=== PATIENT | male | born 1965 | race Caucasian/White ===

== ENCOUNTER 2021-05-05 08:47 | Outpatient (CLI) | payer BC, SELFPAY ==
--- NOTE | ~2021-05-05 | CT_ITS ---
EXAMINATION: CT sinus wo con DATE: 05/05/2021 09:17 INDICATION: Sinusitis. Congestion. TECHNIQUE: Computed tomography (CT) of the paranasal sinuses was performed without contrast. Iterativ e reconstruction technique was employed. Exam dose: 284.29 mGy-cm total exam DLP. COMPARISON: None FINDINGS: There is rightward deviation of the nasal septum. The left middle nasal turbinate is engulfed by soft tissue thickening, with opacification of the left middle meatus. The left osteomeatal unit is completely opacified. The left maxillary sinus is completely opacified. There is nearly complete opacification of the left ethmoid air cells. There is moderate soft tissue thickening of the left frontal sinus. There is complete opacification of the right frontal sinus and partial opacification of the right eth moid air cells. Approximately 10 x 14 mm polypoid soft tissue density along the medial roof of the right maxillary si nus near the maxillar ostium. Minimal mucoperiosteal thickening of the inferior aspect of the right maxillary sinus. Mild mucoperiosteal thickening of both sphenoid sinuses. Mastoid air cells are normally developed and aerated. Middle and inner ear apparatus appear normal bi laterally. IMPRESSION: Extensive paranasal sinus disease, with severe soft tissue thickening of the left nasoph arynx including opacification mm, middle nasal turbinate engulfed by soft tissue thickening, complete opacification of left ostiomeatal unit, left maxillary sinus and nearly complete opacification of le ft ethmoid air cells Complete opacification of right frontal sinus, partial opacification of ethmoid air cells September 05 or polypoid opacity near right maxillary ostium, minimal soft tissue thickening in the lo wer right maxillary sinus Mild mucoperiosteal thickening of the sphenoid sinus Reviewed, dictated and finalized at [facility]. Reviewed, dictated and finalized at [facility]. IMPRESSION: Extensive paranasal sinus disease, with severe soft tissue thicken ing of the left nasopharynx including opacification mm, middle nasal turbinate engulfed by soft tissue thickening, complete opacification of left ostiomeatal unit, left maxillary sinus and nearly complete opacification of left ethmoid ai r cells Complete opacification of right frontal sinus, partial opacification of ethmoid air cells September 05 or polypoid opacity near right maxillary ostium, minimal soft tissu e thickening in the lower right maxillary sinus Mild mucoperiosteal thickening of the sphenoid sinus
== END 2021-05-05 08:48 | disposition home or self-care (01) ==
LOC: ANHIMG 08:50
PROVIDERS: PCP Internal Medicine; Visit Provider Internal Medicine
DX: J34.89 Other specified disorders of nose and nasal sinuses (principal); R93.0 Abnormal findings on diagnostic imaging of skull and head, not elsewhere classified
CPT/HCPCS: 70486

== ENCOUNTER 2021-06-22 08:14 | Outpatient (CLI) | payer BC, SELFPAY ==
--- NOTE | 2021-06-22 08:15 | ECG_ITS ---
Measurements Intervals [place] Rate: 86 P: 41 IN: 170 QRS: 25 QRSD: 103 T: 43 QT: 346 QTc: 414 Interpretive Statements SINUS RHYTHM BORDERLINE R WAVE PROGRESSION, ANTERIOR LEADS MINIMAL Q WAVES- INFERIOR LEADS BORDERLINE ECG Electronically Signed On 06-22-2021 9:54:00 CDT by Ken Velasquez D.O.
== END 2021-06-22 08:15 | disposition home or self-care (01) ==
PROVIDERS: PCP Internal Medicine; Visit Provider Otolaryngology
DX: Z01.810 Encounter for preprocedural cardiovascular examination (principal); E78.5 Hyperlipidemia, unspecified
CPT/HCPCS: 93005

== ENCOUNTER 2021-06-23 01:39 | Day surgery (SDC) | payer BC, SELFPAY ==
[2021-06-20 14:22] VITALS: BMI 29.0
--- NOTE | 2021-06-22 09:41 | PM.IMHP ---
H&P: HPI History of Present Illness Date/Time: 06/22/21 09:41 Chief Complaint: nasal obstruction nasal congestion septal deviation inferior turbinate hypertrophy chronic sinusitis nasal polyposis Narrative: patient presents for planned surgical procedures. No change in symptoms no change in history Review of Systems Constitutional: Constitutional: Denies fatigue, Denies fever(s) and Denies lethargy Eyes: Eyes: Denies blurry vision and Denies change in vision ENT: Reports as per HPI Cardiovascular: Cardiovascular: Denies chest pain Respiratory: Respiratory: Denies cough Endocrine: Endocrine: Denies fatigue Hematologic/Lymphatic: Hematologic/Lymphatic: Denies easy bleeding, Denies easy bruising and Denies lymphadenopathy Allergic/Immunologic: Allergic/Immunologic: Denies seasonal rhinorrhea [facility] Past Medical History Medical History (Updated 05/17/21 @ 15:04 by Yamil Zuniga MD) 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 Lumbar back pain with radiculopathy affecting left lower extremity Family History Family History Sibling Family history of malignant neoplasm Father Family history of heart disease in male family member before age 55 Carcinoma of colon Diabetes mellitus Depression Mother Lung cancer Social History Social History Smoking packs per day: 1.5 Smoking cigarettes per day: 30.0 Years smoked: 15 Smoking pack-years: 22.50 Smoking status: Former smoker Tobacco type: cigarettes Smoking end date: 11/21/17 Alcohol intake: current Drinks per week: 6 Substance use: never Substance use type: does not use Spiritual care concerns: No Meds Home Medications and Allergies Home Medications Medication Instructions Recorded Confirmed Type triamcinolone acetonide 0.025 % 1 applic TOPICAL DAILY 10/26/19 06/20/21 History topical cream bupropion HCl 75 mg tablet 75 mg PO DAILY #90 tablet 12/06/20 06/20/21 Rx prednisone 10 mg tablet 10 mg PO DAILY #10 tablet 06/12/21 06/20/21 Rx ezetimibe 10 mg PO DAILY 06/20/21 06/20/21 History paroxetine HCl 20 mg PO DAILY 06/20/21 06/20/21 History Allergies Allergy/AdvReac Type Severity Reaction Status Date / Time Prrsrih-Vae-Skc Reductase Allergy Intermediate Diarrhea Verified 06/20/21 14:18 Inhibitor Exam Const: General: cooperative, healthy appearing, comfortable, well developed and alert HENMT: Head: normal to inspection, normocephalic and atraumatic Ears: hearing grossly normal bilaterally, external ears normal, TM's normal bilaterally and EAC's normal General nose exam: Normal external nose present, Normal nares present and Other nasal findings present ( polyps septal deviation inferior turbinate hypertrophy) Face and sinus: normal facial exam Mouth: Yes Normal oral and palatal mucosa present, Yes lip normal, Yes tongue normal, Yes oropharynx normal and Yes moist mucous membranes Teeth and gingiva: dentition normal and gingiva normal Throat: posterior oropharynx normal, tonsils normal and uvula midline Eyes: General: appearance normal, both eyes and all related structures Periorbital: periorbital findings normal Eyelids: eyelids normal Conjunctivae: conjunctivae normal Sclera: sclerae normal Neck: Neck: normal visual inspection, full ROM and no lymphadenopathy Thyroid: thyroid normal Lymphatic: no lymphadenopathy noted Resp: Effort & Inspection: normal respiratory effort and able to speak in complete sentences Cardio: Jugular venous distension: no JVD Neuro: Cranial nerves: Yes CN's II-XII intact bilaterally Assessment and Plan Assessment and plan (1) Chronic sinusitis: Code(s): J32.9 - Chronic sinusitis, unspecified Status: Acute Assessment and Plan: plan is for the operating room image guided bilateral endoscopic maxillary antrostomies total ethmoidectomies sphenoidotomies fronta
[2021-06-23] VITALS (7 sets, daily range): BP systolic 118–135; BP diastolic 70–88; PULSE 65–79; RESP 9–20; TEMP 36.1–36.3; O2SAT 97–100
--- NOTE | 2021-06-23 07:08 | WPDHPUPDATE1 ---
History and Physical Update Update Date/Time: 06/23/21 07:08 History and Physical has been reviewed, including an updated exam of the patient. There are NO changes in the patient's condition. Risks, benefits, and alternatives have been discussed and questions answered. Patient agrees to proceed with procedure.
[2021-06-23] MEDS: LACTATED RINGERS 1,000 ML 30 ML IV CONT (09:23)
[2021-06-23] MEDS: ACETAMINOPHEN 500 MG TABLET 1000 MG PO (09:23)
--- NOTE | 2021-06-23 09:25 | P.PNAN_ITS ---
Anes - Initial Pre Proc Eval Procedure: Operation Date: 06/23/21 10:45 Proposed Procedures p Septoplasty, - Yamil Zuniga MD s Image Guided, Bilateral Inferior Turbinectomy, Bilateral Total Ethmoidectomy, Bilateral Frontal Sinusotomy, Bilateral Sphenoidotomy, Bilateral Maxillary Antrostomy - Yamil Zuniga MD Date/Time: 06/23/21 09:25 Surgeon: Yamil Zuniga MD Pre Op Diagnosis: chronic sinusitis,septal deviation,turbinate hyper Patient Data Age: 55 Gender: M Height: 1.85 m Weight: 95.8 kg Allergies Allergy/AdvReac Type Severity Reaction Status Date / Time Hpvjime-Wgd-Zum Reductase Allergy Intermediate Diarrhea Verified 06/23/21 09:07 Inhibitor Home Medications Medication Instructions Recorded Confirmed Type triamcinolone acetonide 0.025 % 1 applic TOPICAL DAILY 10/26/19 06/23/21 History topical cream bupropion HCl 75 mg tablet 75 mg PO DAILY #90 tablet 12/06/20 06/23/21 Rx prednisone 10 mg tablet 10 mg PO DAILY #10 tablet 06/12/21 06/23/21 Rx ezetimibe 10 mg PO DAILY 06/20/21 06/23/21 History paroxetine HCl 20 mg PO DAILY 06/20/21 06/23/21 History aspirin 81 mg PO DAILY 06/23/21 06/23/21 History Patient hx anesthesia problems: none Family hx anesthesia problems: none Results Review: All pre-operative results and documents have been reviewed as part of the pre-operative evaluation. 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 Lumbar back pain with radiculopathy affecting left lower extremity Other and unspecified hyperlipidemia Family History Family History Sibling Family history of malignant neoplasm Father Family history of heart disease in male family member before age 55 Carcinoma of colon Diabetes mellitus Depression Mother Lung cancer Social History Social History Smoking packs per day: 1.5 Smoking cigarettes per day: 30.0 Years smoked: 15 Smoking pack-years: 22.50 Smoking status: Current every day smoker Tobacco type: e-cigarettes/vaping Smoking end date: 09/23/13 Alcohol intake: current Drinks per week: 6 Substance use: never Substance use type: does not use Living arrangements: with family Spiritual care concerns: No Anes - Eval Final PreProcedure Day of Procedure 06/23/21 09:25 Patient weight: overweight Heart: regular rate and rhythm Lungs: decreased breath sounds Airway: Mallampati scale class II Neurological: alert and oriented Last oral intake: >/= 8 hours ASA classification: III Emergent: no Anesthetic plan: proceed Anesthesia type and monitoring: general ETT and standard monitoring Results Review: All pre-operative results and documents have been reviewed as part of the pre-operative evaluation. Informed Consent: The patient's anesthetic plan and its attendant risks and benefits were discussed with the patient/family/POA. Questions were solicited and answers provided to the satisfaction of the patient/family/POA.
[2021-06-23] MEDS: ceFAZolin 2 GM/D5W 50 ML 2 GM/50 ML BAG IVPB (11:15)
[2021-06-23] MEDS: OXYMETAZOLINE HCL 0.05% NAS 15 ML BTL (*BKC) 1 SPRAY NASAL (11:52)
--- NOTE | 2021-06-23 12:38 | P.OP_ITS ---
Procedure Note - Detailed Date of Procedure 06/23/21 Pre-op Diagnosis chronic sinusitis,septal deviation,turbinate hypertrophy, septal deviation, nasal polyposis Post-op Diagnosis other (Sinonasal tumor versus encephalocele) Procedure Performed Nasal endoscopy Surgeon Yamil Zuniga MD Anesthesia general Indications See above Findings Inflammatory polyps largely resolved left-sided lesion emanating from the frontal sinus outflow tract appears to be 1 lesion nonpulsatile Description of Procedure Patient correctly identified consent was verified in the preoperative holding area. Prior to proceeding to the operating room I discussed in great detail with the patient that the sinus surgery would be canceled if it appeared to be a skull base lesion such as tumor and or encephalocele. The patient prior had inflammatory polyps. Once in the operating room general anesthesia was induced and endotracheal tube was secured the patient's airway. Time-out was performed. Patient was then prepped and draped for the aforementioned procedure 2nd time- out performed. Image guidance initiated. Afrin-soaked pledgets placed in bilateral nasal passages for 5 minutes then removed. Nasal endoscopy commenced. Right-sided nasal polyps have largely resolved there is some scant tissue on the septum. On the left side there is a large sac like structure. It was 1 structure not multiple polyps. The structure appeared to be emanating from the skull base/left frontal outflow tract. Purulence was noted emanating from the middle meatus. This was suctioned. The decision was made to end the procedure should this be an encephalocele no biopsy was taken. Care the patient was turned over to Anesthesiology. I performed all dictated portions. Blood loss 0 cc. Estimated Blood Loss 0 Drains No Packing No Pathology none sent Complications No immediate complications Condition stable Disposition PACU
--- NOTE | 2021-06-23 12:57 | SUR.PHASEI ---
DR. KOENIG NOTIFIED THAT PATIENT IS AWAKE AND ALERT; WILL COME TO SPEAK TO HIM ABOUT THE PLAN.
== END 2021-06-23 13:30 | disposition home or self-care (01) ==
PROVIDERS: PCP Internal Medicine; Visit Provider Otolaryngology
PROC: (CPT 30520; principal; 2021-06-23 10:45)
DX: J34.89 Other specified disorders of nose and nasal sinuses (principal); J32.8 Other chronic sinusitis; J34.2 Deviated nasal septum; J34.3 Hypertrophy of nasal turbinates; J33.9 Nasal polyp, unspecified; Z79.82 Long term (current) use of aspirin; R09.81 Nasal congestion; F41.9 Anxiety disorder, unspecified; G51.0 Bell's palsy; F17.290 Nicotine dependence, other tobacco product, uncomplicated
CPT/HCPCS: 31231; 61782; A9270; J0690; J2250; J3010; J7120

== ENCOUNTER 2021-06-30 07:37 | Outpatient (CLI) | payer BC, SELFPAY ==
--- NOTE | ~2021-06-30 | MR_ITS ---
EXAMINATION: MR brain/brain stem wo/w con DATE: 06/30/2021 08:30 INDICATION: Nasal polyp, unspecified. Headache. TECHNIQUE: Magnetic resonance imaging (MRI) of the brain and brainstem was performed without and with 19 mL MultiHance intravenous contrast. Sequences included sagittal and axial T1-weighted FSE, axial diffusion-weighted FS EPI, axial T2*-weighted GRE, axial T2-weighted FLAIR Propeller, and axial T2-we ighted Propeller. Postcontrast sequences included axial, sagittal, and coronal T1-weighted FSE. Appar ent diffusion coefficient (ADC) maps were created. COMPARISON: Sinuses CT 05/05/2021 FINDINGS: There are scattered areas of nonspecific increased T2-weighted signal intensity in the cere bral white matter. There is no intracranial hemorrhage, acute infarction, or abnormal intracranial ma ss lesion. There is left frontal pachymeningeal enhancement. The ventricles are normal in size. The m astoid air cells are normal. The orbits are normal. There is extensive mucosal thickening in the para nasal sinuses including complete opacification of left maxillary sinus, the left ethmoid sinuses, and the frontal sinuses. There is dehiscence of posterior wall of left frontal sinus and medial wall of left orbit. A polyp from left maxillary sinus extends into the nasal cavity. IMPRESSION: 1. Mild nonspecific cerebral white matter disease, which likely represents chronic small vessel ische daly disease. 2. Extensive sinus disease with areas of bone dehiscence including dehiscence of posterior wall of le ft frontal sinus with left frontal pachymeningeal enhancement. These findings likely represent sinona shantanu polyposis. Reviewed, dictated and finalized at location [facility]. IMPRESSION: 1. Mild nonspecific cerebral white matter disease, which likely represents supervisor nurse kenton small vessel ischemic disease. 2. Extensive sinus disease with areas of bone dehiscence including dehiscence o f posterior wall of left frontal sinus with left frontal pachymeningeal enhance ment. These findings likely represent sinonasal polyposis.
[2021-06-30 08:05] LABS: Estimated Glomerular Filt Rate > 60
== END 2021-06-30 07:38 | disposition home or self-care (01) ==
PROVIDERS: PCP Internal Medicine; Visit Provider Otolaryngology
DX: J33.9 Nasal polyp, unspecified (principal); J34.89 Other specified disorders of nose and nasal sinuses; D49.1 Neoplasm of unspecified behavior of respiratory system; Q01.9 Encephalocele, unspecified; R90.82 White matter disease, unspecified; J32.1 Chronic frontal sinusitis
CPT/HCPCS: 70553; A9577

== ENCOUNTER 2021-07-11 03:40 | Day surgery (SDC) | payer BC, SELFPAY ==
[2021-07-05 15:20] VITALS: BMI 27.8
--- NOTE | 2021-07-10 08:18 | PM.IMHP ---
H&P: HPI History of Present Illness Date/Time: 07/10/21 08:18 Chief Complaint: chronic sinusitis, nasal polyps, skull base dehiscence, inferior turbinate hypertrophy, septal deviation, nasal congestion, nasal obstruction Narrative: patient presents for planned surgical procedures. MRI reviewed. No change in symptoms, no change in medical history. 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 Lumbar back pain with radiculopathy affecting left lower extremity Other and unspecified hyperlipidemia Family History Family History Sibling Family history of malignant neoplasm Father Family history of heart disease in male family member before age 55 Carcinoma of colon Diabetes mellitus Depression Mother Lung cancer Social History Social History Smoking packs per day: 1.5 Smoking cigarettes per day: 30.0 Years smoked: 15 Smoking pack-years: 22.50 Smoking status: Former smoker Tobacco type: e-cigarettes/vaping Smoking end date: 09/23/13 Alcohol intake: current Drinks per week: 6 Substance use: never Substance use type: does not use Living arrangements: with family Spiritual care concerns: No Meds Home Medications and Allergies Home Medications Medication Instructions Recorded Confirmed Type triamcinolone acetonide 0.025 % 1 applic TOPICAL DAILY 10/26/19 07/05/21 History topical cream bupropion HCl 75 mg tablet 75 mg PO DAILY #90 tablet 12/06/20 07/05/21 Rx prednisone 10 mg tablet 10 mg PO DAILY #10 tablet 06/12/21 07/05/21 Rx ezetimibe 10 mg PO DAILY 06/20/21 07/05/21 History paroxetine HCl 20 mg PO DAILY 06/20/21 07/05/21 History aspirin 81 mg PO DAILY 06/23/21 07/05/21 History doxycycline hyclate 100 mg PO DAILY #14 cap 06/23/21 07/05/21 Rx prednisone 20 mg tablet 20 mg PO DAILY #4 tablet 07/06/21 Rx Allergies Allergy/AdvReac Type Severity Reaction Status Date / Time Aqrwrzq-VJF-ViC Reductase Allergy Intermediate Diarrhea Verified 07/05/21 15:18 Inhibitor [Ixfbuca-Dxb-Izz Reductase Inhibitor] Exam Const: General: cooperative, healthy appearing, comfortable, well developed and alert HENMT: Head: normal to inspection, normocephalic and atraumatic Ears: hearing grossly normal bilaterally, external ears normal, TM's normal bilaterally and EAC's normal General nose exam: Normal external nose present, Normal nares present, No nasal polyps present and Other nasal findings present ( Inferior turbinate hypertrophy, septal deviation) Face and sinus: normal facial exam Mouth: Yes Normal oral and palatal mucosa present, Yes lip normal, Yes tongue normal, Yes oropharynx normal and Yes moist mucous membranes Teeth and gingiva: dentition normal and gingiva normal Throat: posterior oropharynx normal, tonsils normal and uvula midline Eyes: General: appearance normal, both eyes and all related structures Periorbital: periorbital findings normal Eyelids: eyelids normal Conjunctivae: conjunctivae normal Sclera: sclerae normal Neck: Neck: normal visual inspection, full ROM and no lymphadenopathy Thyroid: thyroid normal Lymphatic: no lymphadenopathy noted Resp: Effort & Inspection: normal respiratory effort and able to speak in complete sentences Cardio: Jugul
[2021-07-11] VITALS (9 sets, daily range): BP systolic 115–143; BP diastolic 75–96; PULSE 78–97; RESP 11–18; TEMP 36.4–36.8; O2SAT 93–98
[2021-07-11] MEDS: LACTATED RINGERS 1,000 ML 30 ML IV CONT ×2 (08:15→12:24)
[2021-07-11] MEDS: ACETAMINOPHEN 500 MG TABLET 1000 MG PO (08:18)
--- NOTE | 2021-07-11 09:00 | WPDHPUPDATE1 ---
History and Physical Update Update Date/Time: 07/11/21 09:00 History and Physical has been reviewed, including an updated exam of the patient. There are NO changes in the patient's condition. Risks, benefits, and alternatives have been discussed and questions answered. Patient agrees to proceed with procedure.
--- NOTE | 2021-07-11 09:29 | WPDANESEFPP ---
Anes - Eval Final PreProcedure Day of Procedure 07/11/21 09:29 Patient weight: overweight Heart: regular rate and rhythm Lungs: clear to auscultation Airway: Mallampati scale class II Neurological: alert and oriented Last oral intake: >/= 8 hours ASA classification: II Emergent: no Anesthetic plan: proceed Anesthesia type and monitoring: general ETT and standard monitoring Results Review: All pre-operative results and documents have been reviewed as part of the pre-operative evaluation. Informed Consent: The patient's anesthetic plan and its attendant risks and benefits were discussed with the patient/family/POA. Questions were solicited and answers provided to the satisfaction of the patient/family/POA.
[2021-07-11] MEDS: ceFAZolin 2 GM/D5W 50 ML 2 GM/50 ML BAG IVPB (09:55)
[2021-07-11] MEDS: OXYMETAZOLINE HCL 0.05% NAS 15 ML BTL (*BKC) 1 SPRAY NASAL (10:26)
[2021-07-11] MEDS: LIDO 1%/EPINEPHRINE 1:100,000 50 ML VIAL INFILTRATE (12:18)
--- NOTE | 2021-07-11 12:55 | W.PM.PROC2 ---
Procedure Note - Detailed Date of Procedure 07/11/21 Pre-op Diagnosis Septal Deviation, Turbinate Hypertrophy, chronic sinusitis, nasal polyposis, dehiscent orbit on the right, dehiscent skull base on the left, nasal congestion, nasal obstruction Post-op Diagnosis same Procedure Performed 1. Image guided bilateral maxillary antrostomies With tissue removed 2. bilateral endoscopic image guided total ethmoidectomies 3. Image guided bilateral sphenoidotomies 4. Image guided bilateral frontal sinusotomies right side with tissue removal 5. Endoscopic assisted septoplasty 6. Inferior turbinate bilateral reduction submucosally with outfracture 6. Bilateral middle turbinectomies Surgeon Yamil Zuniga MD [employer] none Anesthesia general Indications see above Findings right orbital dehiscence small 5 x 5 mm area exposed inverted we of periorbital fat no further exposure, left skull base posterior table of frontal sinus dehiscence not directly visualized operatively, polyps throughout the sinonasal passages, left frontal sinus and left maxillary sinus full of purulence and edematous tissue, severe polypoid disease on the bilateral middle turbinates. Description of Procedure the patient was correctly identified and consent verified in the preoperative holding area. The patient was then brought to the operating room and a time-out performed. General anesthesia was induced and endotracheal tube was secured the patient's airway and taped to the left lower lip. Image guidance was initiated. Patient was prepped and draped for the aforementioned procedure. Second time-out performed. Afrin-soaked pledgets were placed in bilateral nasal passages and allowed to sit for 5 minutes and then removed. Under 0 degree endoscopic guidance the bilateral nasal passages reviewed with the aforementioned findings. Right septal deviation was noted obstructing the middle meatus. The left large polyp was biopsied to confirm it was inflammatory in nature. No CSF leak was noted. Polypectomy was performed using Microdebrider. Left-sided maxillary antrostomy created with double ball tip probe micro debrider backbiter and straight through cut. Copious amounts of edematous tissue and purulence were noted anterior ethmoidectomy and posterior ethmoidectomy performed with Kerrison and microdebrider. Sphenoid location was confirmed using image guidance opened with a 1 Kerrison and then 3 Kerrison as well as microdebrider. Completion of left-sided maxillary antrostomy total ethmoidectomy and sphenoidotomy was confirmed using image guidance. Pledgets were placed the right side was then addressed. 2 cc of local were injected around the large spur obstructing middle meatus a 15 blade was utilized to create a mid septal right-sided incision. Mucosa was elevated over the spur with only small tear noted. The spur was then removed using an osteotome with a much straighter septum noted post endoscopic assisted septoplasty. The mucosa was laid back down with no perforation noted on the opposite side. Maxillary antrostomy was again created using double ball tip probe back biter and straight through cut as well as microdebrider. Total ethmoidectomy was performed using micro debrider and 3 mm Kerrison. At this time was noted that the orbit was largely dehiscent on the right side. There was a small 5 x 5 mm area of exposed periorbital fat no further complications or exposure were noted. Completion of the right-sided sphenoidotomy total ethmoidectomy maxillary antrostomy were confirmed using image guidance. Sphenoidotomy was performed with 1 in 3 Kerrison is an micro debrider. Again the middle turbinates were removed bilaterally given their extreme polypoid and polyp disease. They were removed with straight through cut Teetee forceps and the stump was cauterized with no bleeding noted with Bovie suction electrocautery at a setting of 15. Hemostasis was excellent at this point. A 70 degree scope wa
== END 2021-07-11 14:02 | disposition home or self-care (01) ==
PROVIDERS: PCP Internal Medicine; Visit Provider Otolaryngology
PROC: (CPT 30520; principal; 2021-07-11 09:30)
PROC: (CPT 30140; 2021-07-11 09:30)
DX: J32.9 Chronic sinusitis, unspecified (principal); J34.2 Deviated nasal septum; J34.3 Hypertrophy of nasal turbinates; J33.9 Nasal polyp, unspecified; R09.81 Nasal congestion; J34.89 Other specified disorders of nose and nasal sinuses; H05.89 Other disorders of orbit; M95.2 Other acquired deformity of head; E78.49 Other hyperlipidemia; F41.9 Anxiety disorder, unspecified; Z87.891 Personal history of nicotine dependence; Z79.82 Long term (current) use of aspirin
CPT/HCPCS: 30140; 31267; 31257; 31253; 61782; 30520; 88304; 88305; A9270; J0330; J0690; J1100; J2250; J2370; J2405; J2704; J3010; J7120

== ENCOUNTER → 2022-07-03 08:33 | Outpatient (CLI) | payer BC, SELFPAY ==
--- NOTE | ~2022-07-03 | XR_ITS ---
EXAMINATION: XR hip LT min 2V INDICATION: Left hip pain TECHNIQUE: Two views of the left hip are obtained. COMPARISON: None available FINDINGS: There is osteoarthritis of the hip, advanced in the superolateral aspect of the joint space . Bone alignment is normal. There is no fracture. The soft tissues are unremarkable. There appears to be at least mild lumbar spondylosis. IMPRESSION: 1. Left hip osteoarthritis, advanced in the superolateral aspect of the joint space. Reviewed, dictated and finalized at location [facility]. IMPRESSION: 1. Left hip osteoarthritis, advanced in the superolateral aspect of the joint s pace.
== END ==
PROVIDERS: PCP Family Medicine; Visit Provider Family Medicine
DX: M16.12 Unilateral primary osteoarthritis, left hip (principal)
CPT/HCPCS: 73502

== ENCOUNTER → 2022-12-13 11:07 | Outpatient (CLI) | payer BC, SELFPAY ==
--- NOTE | ~2022-12-13 | XR_ITS ---
Supine and upright views of the abdomen Clinical history: Left flank pain Findings: Bowel gas pattern is nonspecific. No evidence for obstruction or free air. No abnormal mass lesion or calcification is seen. Mild degenerative spondylosis of the lumbar spine noted. Impression: Degenerative changes in the spine. No other significant findings. Reviewed, dictated and finalized at [facility]. Impression: Degenerative changes in the spine. No other significant findings.
== END ==
PROVIDERS: PCP Family Medicine; Visit Provider Family Medicine
DX: R10.9 Unspecified abdominal pain (principal)
CPT/HCPCS: 74018

== ENCOUNTER 2023-09-05 14:06 | Outpatient (CLI) | payer BC, SELFPAY ==
--- NOTE | 2023-09-05 14:11 | ECG_ITS ---
Measurements Intervals [place] Rate: 76 P: 48 ID: [id number] QRS: 46 QRSD: 92 T: 74 QT: 369 QTc: 417 Interpretive Statements SINUS RHYTHM POOR R-WAVE PROGRESSION ABNORMAL ECG COMPARED TO ECG 06/22/2021 08:33:06 NO SIGNIFICANT CHANGES Electronically Signed On 09-05-2023 14:36:37 [employer] by Santiago Shaffer M.D.
== END 2023-09-05 14:07 | disposition home or self-care (01) ==
LOC: ANHCARD 14:08
PROVIDERS: PCP Family Medicine; Visit Provider Orthopaedic Surgery
DX: M16.12 Unilateral primary osteoarthritis, left hip (principal)
CPT/HCPCS: 93005

== ENCOUNTER 2023-11-15 09:37 | Outpatient (CLI) | payer OTHER, SELFPAY ==
[2023-11-15 10:55] LABS: Basophils Absolute Auto 0.1 K/mm3 (0.0-0.1); Eosinophils Absolute Auto 0.4 K/mm3 (0-0.3); Hematocrit 46.9 % (42.0-52.0); Hemoglobin 15.9 g/dL (14.0-18.0); Immature Granulocyte Absolute 0.01 K/mm3 (0.00-0.031); Immature Granulocyte Percent A 0.2 % (0-0.5); Lymphocytes Absolute Auto 1.31 K/mm3 (0.9-3.2); Lymphocytes Percent Auto 22.4 % (18.3-44.2); Mean Corpuscular HGB Conc 33.9 g/dl (32-36); Mean Corpuscular Hemoglobin 32.6 pg (26-34); Mean Corpuscular Volume 96.3 fl (80-100); Monocytes Absolute Auto 0.7 K/mm3 (0.1-0.6); Monocytes Percent Auto 11.3 % (2.6-8.5); Neutrophils Absolute Auto 3.4 K/mm3 (1.3-6.7); Neutrophils Percent Auto 58.1 % (45.5-73.1); Platelet Count Result 284 k/mm3 (150-375); Red Blood Count 4.87 M/mm3 (4.6-6.20); Red Cell Distribution Width 13.2 % (11.5-14.5); White Blood Count 5.8 K/mm3 (4.5-10.0)
[2023-11-15 11:05] LABS: Albumin Level 4.5 g/dL (3.5-5.1); Estimated Glomerular Filt Rate > 60; Glucose 105 mg/dL (65-110)
[2023-11-15 11:08] LABS: Urine Cotinine NEGATIVE
[2023-11-15 12:09] LABS: MRSA (PCR) NOT DETECTED (NOT DETECTE)
== END 2023-11-15 09:38 | disposition home or self-care (01) ==
LOC: ANHSURGERY 09:39
PROVIDERS: PCP Family Medicine; Visit Provider Orthopaedic Surgery
DX: M16.12 Unilateral primary osteoarthritis, left hip (principal); Z01.818 Encounter for other preprocedural examination
CPT/HCPCS: 80307; 82040; 82565; 82947; 83036; 85025; 87641

== ENCOUNTER 2023-12-10 00:04 | Day surgery (SDC) | payer OTHER, SELFPAY ==
[2023-11-15 09:26] VITALS: BP 136/80; PULSE 76; RESP 20; TEMP 36.6; O2SAT 96; BMI 29.7
--- NOTE | 2023-11-15 09:27 | PC.NURSE ---
Report to the Outpatient Waiting Room, entrance under the green pavilion located off [facility], at time _0600_ on date _12/10/23_. Planned Procedure Time: _0730_. PACK A SMALL OVERNIGHT BAG AND LEAVE IT IN THE CAR ALONG WITH YOUR WALKER Time changes happen often and if your time is changed the preop area will call you the afternoon before. - You and your visitor will be asked to self-screen and do not enter if you have any COVID symptoms. - A mask is optional within the hospital at this time. -VISITING HOURS 8AM-8PM Patients may have clear liquids (water, carbonated beverages, clear teas, apple juice) until 3 hours prior to surgery (0430 AM) with a maximum of 20 ounces. - No food from midnight until time of surgery Take the following medications with a SIP of water the morning of surgery: _PAROXETINE_ DO NOT STOP ANY OF YOUR OTHER PRESCRIPTION MEDICATIONS PRIOR TO SURGERY ?EXCEPT THE FOLLOWING Medications to discontinue per DR. WATERS - _ASPIRIN 7 DAYS PRIOR TO SURGERY, Date to take last dose 12/02/23_ Medications to discontinue per ANESTHESIA - _MULTIVITAMIN 3 DAYS PRIOR TO SURGERY, Date to take last dose 12/06/23_ Please no make-up, nail burundian, hairspray, perfume, deodorant, or body powder the day of surgery. No jewelry (including any body piercings) or valuables the day of surgery, leave them at home. Please take a shower or bath the night before, or the morning of, surgery with an antibacterial soap. Wear comfortable, loose fitting clothing. - Jewelry must be removed prior to entering the operating room. Rings and piercings that are not removed may be cut off. - The hospital will not accept responsibility for valuables. - Please leave all valuables, including medications, at home the day of surgery. If you are going home after surgery, a licensed vending route driver must drive you home. - NO public transportation without another adult if you receive anesthesia. - We recommend that an adult stay with you for 24 hours following discharge. - We also recommend that you do not drive, make important decision, drink alcoholic beverages, or take any drugs that were not prescribed by your health care provider for at least 24 hours after your discharge time. Follow any additional instructions given to you from your surgeon. If you or anyone in your household have experienced Covid symptoms in the past week, please notify your surgeon or the nurse liaison at the phone number below for possible testing. Telephone instructions given to _PATIENT_and asked if any additional questions and then verbalized understanding. Patient advised to call surgeon office or pre surgery nurse liaison [phone] if any additional questions.
[2023-12-10] VITALS (13 sets, daily range): BP systolic 108–139; BP diastolic 65–90; PULSE 84–113; RESP 12–18; TEMP 36.3–37.3; O2SAT 92–99
--- NOTE | ~2023-12-10 | XR_ITS ---
EXAMINATION: XR hip LT min 2V DATE: 12/10/2023 10:02 INDICATION: Postoperative evaluation following left total hip arthroplasty TECHNIQUE: Anteroposterior and lateral views of the left hip were obtained. COMPARISON: 07/04/2023 FINDINGS: Interval placement of a left total hip arthroplasty which appears well seated in near anatomic alignm ent. Expected subcutaneous gas in the postoperative bed. No fractures identified. IMPRESSION: 1. Left total hip arthroplasty, negative for postoperative purposes. Reviewed, dictated and finalized at location A.
--- NOTE | 2023-12-10 06:36 | WPDANESEPPF ---
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 Patient Data Age: 57 Gender: M Height: 1.85 m Weight: 102.4 kg Last Vital Signs Temp 36.6 C 11/15/23 09:26 Pulse 76 11/15/23 09:26 Resp 20 11/15/23 09:26 BP 136/80 11/15/23 09:26 Pulse Ox 96 11/15/23 09:26 O2 Del Method Room Air 11/15/23 09:26 Allergies Allergy/AdvReac Type Severity Reaction Status Date / Time Xltmkvq-FQY-LgR Reductase Allergy Intermediate Diarrhea Verified 11/15/23 09:53 Inhibitor [Xyqkmhq-Zon-Pdw Reductase Inhibitor] Home Medications Medication Instructions Recorded Confirmed Type aspirin 81 mg tablet 81 mg PO DAILY 06/23/21 11/15/23 History pravastatin 40 mg tablet 40 mg PO DAILY #90 tabs 10/02/23 11/15/23 Rx cetirizine 5 mg tablet 5 mg PO DAILY 11/15/23 11/15/23 History multivitamin 1 tablet PO DAILY 11/15/23 11/15/23 History paroxetine HCl 20 mg tablet 20 mg PO DAILY #90 tabs 11/27/23 Rx Patient hx anesthesia problems: none Family hx anesthesia problems: none Results Review: All pre-operative results and documents have been reviewed as part of the pre-operative evaluation. 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 Lumbar back pain with radiculopathy affecting left lower extremity Other and unspecified hyperlipidemia Surgical History Surgical History H/O sinus surgery 11/2021 History of bone marrow donation History of hernia repair Family History Family History Sibling Family history of malignant neoplasm Father Family history of heart disease in male family member before age 55 Carcinoma of colon Diabetes mellitus Depression Mother Lung cancer Social History Social History Smoking packs per day: 1.5 Smoking cigarettes per day: 30.0 Years smoked: 15 Smoking pack-years: 22.50 Smoking status: Former smoker Tobacco type: e-cigarettes/vaping Second hand tobacco smoke exposure: No Smoking end date: 09/23/13 Additional smoking assessment comments: Quit smoking cigarrettes 2013, Quit vaping 11/2021 Alcohol intake: current Drinks per week: 6 Substance use: never Substance use type: does not use Do You Feel Safe in your Home?: Yes Lack of Transportation: No Lack of Food: Never True Current Housing: I Have Housing Concerned About Future Housing: No Difficulty Paying Gas/Electric Bills: No Difficulty Paying for Meds: No Currently Unemployed: No Education: Associate Degree Difficulty w/ Childcare or Family Care: No Living arrangements: with family Occupation/Education: occupation 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 Informed Consent: The patient's anesthetic plan and its attendant risks and benefits were discussed with the patient/family/POA. Questions were solicited and answers provided to the satisfaction of the patient/family/POA.
[2023-12-10] MEDS: ACETAMINOPHEN 500 MG TABLET 1000 MG PO ×4 (07:00→23:45)
[2023-12-10] MEDS: TRANEXAMIC ACID 1,000MG/ISO100 1,000 MG/100 ML BAG 200 MG IVPB (07:00)
[2023-12-10] MEDS: LACTATED RINGERS 1,000 ML 30 ML IV CONT ×2 (07:00→09:42)
--- NOTE | 2023-12-10 07:07 | WPDHPUPDATE1 ---
History and Physical Update Update Date/Time: 12/10/23 07:07 History and Physical has been reviewed, including an updated exam of the patient. There are NO changes in the patient's condition. Risks, benefits, and alternatives have been discussed and questions answered. Patient agrees to proceed with procedure.
[2023-12-10] MEDS: ceFAZolin 2 GM/D5W 50 ML 2 GM/50 ML BAG IVPB ×3 (07:33→21:07)
[2023-12-10] MEDS: SODIUM CHLORIDE 0.9% IV 37.7 ML, MORPHINE SULFATE INJ (*CRX) 2 MG, ROPivacaine HCL 1% 2... INFILTRATE (08:02)
--- NOTE | 2023-12-10 09:38 | W.PM.PROC2 ---
Procedure Note - Detailed Date of Procedure 12/10/23 Pre-op Diagnosis Primary oa left hip Post-op Diagnosis Same Procedure Performed Left Total Hip Arthroplasty Surgeon Cachorro Ritchie MD Machine Shorthand Reporter Cherelle Bailey PA-C Anesthesia General Findings Severe tightness of the IT band with snapping over a well defined prominance on the greater trochanter. The prominence was removed. Excellent bone quality and stability. Description of Procedure The patient was given preoperative antibiotics. A general anesthetic was administered. The patient was carefully placed in the lateral decubitus position on the PEG board. The shoulders and hips were carefully positioned for component and leg length positioning reference. The hip was prepped and draped in the usual sterile fashion. A longitudinal incision was created over the posterior aspect of the greater trochanter. Careful dissection was brought down through the deep fascia with electrocautery. A minimally invasive optimized posterior approach to the hip was performed. The short external rotators and capsule were taken down in an L-shaped capsulotomy. The tissue was tagged for later repair using number 2 high strength suture. The femoral neck was measured and taken in situ. The femoral head was removed. The acetabulum was carefully exposed. The inferior capsule was released. The labrum was resected. The acetabulum was sequentially reamed to one over the intended cup size. The cup was impacted into position with excellent press-fit. Typical anatomic landmarks, including the bony contact points as well as the inferior transverse acetabular ligament were used to confirm cup positioning with preoperative templating. Attention was turned to the femur, which was carefully exposed. The hip was reamed and then broached sequentially. Excellent press-fit was obtained with the broach. The hip was trialed. Measurements were utilized, including the lesser trochanter as well as the center of the femoral head and the tip of the trochanter, and excellent assessment of the offset and leg lengths were confirmed. The real component was impacted into position. Trialing confirmed appropriate leg length and offset with soft tissue balancing as well apparent feel of the leg, both at the knee and the heel. Soft tissues were assessed using the the iliotibial band. Reduction of the posterior capsule and external rotators were also used as a secondary assessment. The hip was copiously irrigated with pulsatile lavage antibiotic solution periodically throughout the procedure. The real components were then assembled and reduced. The hip was stable throughout typical maneuvers, including extension, external rotation to 70 degrees, the position of sleep as well as flexion to 90 degrees with internal rotation past 35 degrees. The shake test confirmed stability without impingement. Osteophytes were removed at the anterior and inferior acetabulum. Additional a prominent bony bump was removed from the lateral greater trochanter through a small longitudinal split in the abductor tendon. The short external rotators and capsule were repaired back to the posterior trochanter through drill holes. The deep fascia was repaired with running number 2 barbed suture, followed by 2-0 Stratafix suture and 3-0 Stratafix suture in the dermis. Steri-Strips were placed on the skin, followed by a sterile occlusive dressing. There were no complications. Meticulous hemostasis was maintained with the AquaMantys device. The patient was brought to the recovery room in stable condition. There were no complications. Physician library serials assistant, Cherelle Bailey PA-C, required for surgery; including patient positioning, draping, tissue retraction, maintaining instrument position, hip dislocation/ relocation, wound closure, and dressing placement. Implants The Accolade II hip stem, 132 degree size 7 , was utilized with excellent press-fit. The 58 mm Trident II acetab
--- NOTE | 2023-12-10 11:37 | PC.NURSE ---
This patient, Kristofer Montoya, was admitted to Medical Room 347-01. Patient/family oriented to hospital policies and general routines including ID bracelet, bed and alarms, visiting hours, pain management, procedures, bathroom and other care routines, personal items, smoking policy, room service/diet, and visiting hours. Information on how to activate the Rapid Response Team has been discussed. Patient/Family are encouraged to report perceived risks to care and to ask questions if they do not understand what they are told or what they should do.
[2023-12-10] MEDS: SENNA/DOCUSATE SODIUM TABLET 2 TAB PO (16:06)
[2023-12-10] MEDS: MELOXICAM 7.5 MG TABLET PO (16:06)
[2023-12-10] MEDS: ARTIFICIAL TEARS OPHTH SOLN 15 ML BOTTLE 1 DROP EACH EYE (16:06)
[2023-12-10] MEDS: PROPARACAINE HCL 0.5% 15 ML OPHTH SOLN 1 DROP EACH EYE (16:06)
[2023-12-10] MEDS: ASPIRIN 81 MG ENTERIC TABLET PO (16:06)
[2023-12-10] MEDS: traMADol HCL (*CRX) 50 MG TABLET PO (21:08)
[2023-12-10] MEDS: FAMOTIDINE 20 MG TABLET PO (21:08)
[2023-12-10] MEDS: DICLOFENAC SODIUM 0.1% OPHTH SOLN 2.5 ML BOTTLE 1 DROP EACH EYE (21:08)
[2023-12-10] MEDS: oxyCODONE HCL (*CRX) 5 MG TAB IR 10 MG PO (23:44)
[2023-12-11] VITALS: BP 90/60; PULSE 107; RESP 16; TEMP 37.4; O2SAT 98
[2023-12-11 04:00] VITALS: BP 110/60; PULSE 93; RESP 16; TEMP 36.9; O2SAT 95
[2023-12-11 06:31] LABS: Basophils Percent Auto 0.3 % (0.2-1.2); Eosinophils Percent Auto 0.3 % (0-4.4); Hematocrit 37.9 % (42.0-52.0); Hemoglobin 12.6 g/dL (14.0-18.0); Immature Granulocyte Absolute 0.06 K/mm3 (0.00-0.031); Immature Granulocyte Percent A 0.5 % (0-0.5); Lymphocytes Absolute Auto 1.05 K/mm3 (0.9-3.2); Lymphocytes Percent Auto 9.4 % (18.3-44.2); Mean Corpuscular HGB Conc 33.2 g/dl (32-36); Mean Corpuscular Hemoglobin 32.1 pg (26-34); Mean Corpuscular Volume 96.7 fl (80-100); Mean Platelet Volume 9.6 fl (7.4-10.4); Monocytes Absolute Auto 1.5 K/mm3 (0.1-0.6); Monocytes Percent Auto 13.2 % (2.6-8.5); Neutrophils Absolute Auto 8.6 K/mm3 (1.3-6.7); Neutrophils Percent Auto 76.3 % (45.5-73.1); Platelet Count Result 246 k/mm3 (150-375); Red Blood Count 3.92 M/mm3 (4.6-6.20); Red Cell Distribution Width 13.6 % (11.5-14.5); White Blood Count 11.2 K/mm3 (4.5-10.0)
[2023-12-11] MEDS: ACETAMINOPHEN 500 MG TABLET 1000 MG PO (06:36)
[2023-12-11] MEDS: ceFAZolin 2 GM/D5W 50 ML 2 GM/50 ML BAG IVPB (06:37)
[2023-12-11] MEDS: DICLOFENAC SODIUM 0.1% OPHTH SOLN 2.5 ML BOTTLE 1 DROP EACH EYE (06:37)
[2023-12-11 06:44] LABS: Anion Gap 2 mmol/L (8-16); Blood Urea Nitrogen 19 mg/dL (9-20); Calcium 8.7 mg/dL (8.4-10.2); Carbon Dioxide 30 mmol/L (22-30); Chloride 103 mmol/L (98-107); Estimated CRCL calculation 73 ml/min; Estimated Glomerular Filt Rate > 60; Glucose 129 mg/dL (65-110); Sodium 135 mmol/L (137-145)
--- NOTE | 2023-12-11 07:25 | WPDANESPN ---
Anes - Prog Note Post-Op Date/Time: 12/11/23 07:25 Cardiovascular status: normal Respiratory status: normal Airway patency: baseline Mental status: baseline Post-Op hydration status: normal Vital Signs: Last Vital Signs Temp 36.9 C 12/11/23 04:00 Pulse 93 12/11/23 04:00 Resp 16 12/11/23 04:00 BP 110/60 12/11/23 04:00 Pulse Ox 95 12/11/23 04:00 O2 Del Method Room Air 12/10/23 13:22 O2 Flow Rate 10 12/10/23 09:55 Pain Score (VAS): 2 I/O: Intake & Output 12/10/23 12/10/23 12/11/23 15:59 23:59 07:59 Intake Total 540 340 Balance 540 340 Laboratory Tests 12/11/23 06:14 12/11/23 06:14 12/10/23 12/11/23 06:39 06:14 WBC 11.2 H RBC 3.92 L Hgb 12.6 L D Hct 37.9 L MCV 96.7 MCH 32.1 MCHC 33.2 RDW 13.6 Plt Count 246 MPV 9.6 Immature Gran % (Auto) 0.5 Neut % (Auto) 76.3 H Lymph % (Auto) 9.4 L [place] % (Auto) 13.2 H Eos % (Auto) 0.3 Baso % (Auto) 0.3 Lymph # (Auto) 1.05 [place] # (Auto) 1.5 H Eos # (Auto) 0.0 Baso # (Auto) 0.0 Abs Immat Gran (auto) 0.06 H Absolute Neuts (auto) 8.6 H Absolute Nucleated RBC 0.000 Nucleated RBC % 0.0 Sodium 135 L Potassium 4.0 Chloride 103 Carbon Dioxide 30 Anion Gap 2 L BUN 19 Creatinine 1.10 Estim Creat Clear Calc 73 Estimated GFR > 60 Glucose 129 H Calcium 8.7 Blood Type O Positive Antibody Screen Negative Post-procedural complaints: none Patient Feedback: Patient satisfied with anesthetic care.
--- NOTE | 2023-12-11 07:54 | PCOTNOTE ---
The patient treatment was not able to be completed. Patient reports 8/10 pain and wanted to wait till after pain medication. Will plan to continue treatment per plan of care.
--- NOTE | 2023-12-11 08:03 | PM.DS ---
DS: Admitting Diagnosis Discharge Date 12/11/23 Admitting Diagnosis Hip joint arthritis. DS: Discharge Diagnosis Discharge Diagnosis (1) Status post total hip replacement, left: Code(s): Z96.642 - Presence of left artificial hip joint Status: Acute Assessment and Plan: Postop day 1: Left Total hip arthroplasty. Patient tolerated procedure well. No complications. Pain manageable with pain medication. No numbness or tingling. We had a lengthy discussion regarding postoperative wound care, limitations, expectations, and exercises. Patient shows good understanding. Patient has had initial physical therapy and is tolerating it well. Patient understands that due to the removal of the bony prominence under the IT band, he will need to be on a walker (not cane) for the full 3 weeks at least. DVT prophylaxis: 81 mg baby aspirin b.i.d. for 14 days. Short frequent walks. Pain medication: Percocet. Ibuprofen. Patient has followup appointment with Dr. Ritchie in 3 weeks DS: Summary Hospital Course Reason for hospitalization: Total hip arthroplasty Hospital Course: Patient tolerated procedure well. Has had initial PT/OT. Status at Discharge Functional status at discharge: uses cane/walker Overall status at discharge: patient is progressing back to baseline Time Spent with Patient Time attestation: Total time spent providing and/or coordinating discharge services: Exam Narrative: Thin, tall Male. Resting comfortably in bed. Wearing compression socks bilaterally. Dressing dry and intact with no drainage. Mild swelling. No ecchymosis. No erythema. No hematoma. Range of motion limited due to pain. Calf nontender. Thigh nontender. Neurologic status intact. No varicosities. Distal pulses palpable. DS: Data Data Completed and Pending Labs on day of discharge: Labs from last 24 hours 12/11/23 06:14 WBC 11.2 H RBC 3.92 L Hgb 12.6 L D Hct 37.9 L MCV 96.7 MCH 32.1 MCHC 33.2 RDW 13.6 Plt Count 246 MPV 9.6 Immature Gran % (Auto) 0.5 Neut % (Auto) 76.3 H Lymph % (Auto) 9.4 L [place] % (Auto) 13.2 H Eos % (Auto) 0.3 Baso % (Auto) 0.3 Lymph # (Auto) 1.05 [place] # (Auto) 1.5 H Eos # (Auto) 0.0 Baso # (Auto) 0.0 Abs Immat Gran (auto) 0.06 H Absolute Neuts (auto) 8.6 H Absolute Nucleated RBC 0.000 Nucleated RBC % 0.0 Sodium 135 L Potassium 4.0 Chloride 103 Carbon Dioxide 30 Anion Gap 2 L BUN 19 Creatinine 1.10 Estim Creat Clear Calc 73 Estimated GFR > 60 Glucose 129 H Calcium 8.7 Discharge Plan Discharge Patient Disposition: Home, Self-Care Discharge Instructions: See green instruction sheets Stand Alone Forms: General Discharge Instructions Follow-up/Referrals: Cherelle Bailey PA [Physician Catheter Builder] - Discharge Medications: New aspirin 81 mg tablet,delayed release (DR/EC) 81 mg PO BID 14 Days Qty: 28 0RF oxycodone-acetaminophen 5-325 mg tablet 1 - 2 tablet PO Q4-6H MDD 6 PRN (Reason: pain) Qty: 30 0RF Continued aspirin 81 mg Tablet 81 mg PO DAILY multivitamin Tablet 1 tablet PO DAILY cetirizine 5 mg Tablet 5 mg PO DAILY pravastatin 40 mg tablet 40 mg PO DAILY Qty: 90 1RF paroxetine HCl 20 mg tablet 20 mg PO DAILY Qty: 90 1RF
[2023-12-11] MEDS: PARoxetine 20 MG TABLET PO (08:20)
[2023-12-11] MEDS: oxyCODONE HCL (*CRX) 5 MG TAB IR 10 MG PO (08:20)
[2023-12-11] MEDS: SENNA/DOCUSATE SODIUM TABLET 2 TAB PO (08:20)
[2023-12-11] MEDS: MELOXICAM 7.5 MG TABLET PO (08:20)
[2023-12-11] MEDS: ASPIRIN 81 MG ENTERIC TABLET PO (08:20)
[2023-12-11] MEDS: polyethylene glycoL 3350 17 GM POWD.PACK PO (08:20)
[2023-12-11] MEDS: PRAVASTATIN SODIUM 20 MG TABLET 40 MG PO (08:20)
[2023-12-11] MEDS: FAMOTIDINE 20 MG TABLET PO (08:20)
== END 2023-12-11 12:25 | disposition home or self-care (01) ==
LOC: ANHSURGERY 07:28 → ANH3MED 11:12
PROVIDERS: Physician Assistant Surgical; PCP Family Medicine; Visit Provider Orthopaedic Surgery
PROC: (CPT 27130; principal; 2023-12-10 07:30)
DX: M16.12 Unilateral primary osteoarthritis, left hip (principal); E78.49 Other hyperlipidemia; F41.9 Anxiety disorder, unspecified; Z79.82 Long term (current) use of aspirin; Z87.891 Personal history of nicotine dependence
CPT/HCPCS: 27130; 36415; 73502; 80048; 80307; 82040; 82565; 82947; 83036; 85025; 86850; 86900; 86901; 87641; 97110; 97116; 97165; 97530; 97535; A9270; C1776; J0171; J0690; J1100; J1170; J1885; J2250; J2270; J2371; J2405; J2704; J2795; J3010; J7120

== ENCOUNTER 2024-01-28 14:06 | Outpatient (CLI) | payer OTHER, SELFPAY ==
--- NOTE | ~2024-01-28 | XR_ITS ---
EXAMINATION: XR hip LT min 2V DATE: 01/28/2024 14:25 INDICATION: Left total hip arthroplasty TECHNIQUE: Anteroposterior and frog-leg lateral views of the left hip were obtained. COMPARISON: 12/10/2023 FINDINGS: Noncemented left total hip arthroplasty which appears well seated in near-anatomic alignment. No junior prosthetic lucency to suggest loosening or infection. No fracture. Soft tissues are unremarkable. IMPRESSION: 1. Expected appearance of a left total hip arthroplasty. Reviewed, dictated and finalized at location A.
== END 2024-01-28 14:07 | disposition home or self-care (01) ==
PROVIDERS: PCP Family Medicine; Visit Provider Physician Assistant Surgical
DX: Z96.642 Presence of left artificial hip joint (principal)
CPT/HCPCS: 73502

== ENCOUNTER 2024-09-09 07:03 | Day surgery (SDC) | payer OTHER, SELFPAY ==
[2024-07-20 09:40] VITALS: BMI 30.9
[2024-08-19 13:04] VITALS: BMI 28.4
--- NOTE | 2024-09-09 06:49 | WPDANESEPPF ---
Anes - Initial Pre Proc Eval Procedure: Operation Date: 09/09/24 09:00 Proposed Procedures p Screening Colonoscopy - Pancho Sarkar MD Date/Time: 09/09/24 06:49 Surgeon: Pancho Sarkar MD Pre Op Diagnosis: Neoplasm Screening Patient Data Age: 58 Gender: M Height: 1.85 m Weight: 97.8 kg Allergies Allergy/AdvReac Type Severity Reaction Status Date / Time Qthkhuq-IFO-CuF Reductase AdvReac Intermediate Diarrhea Verified 09/09/24 07:37 Inhibitor (Epplodw-Aav-Aug Reductase Inhibitor) Home Medications ?Medication ?Instructions ?Recorded ?Confirmed ?Type aspirin 81 mg tablet 81 mg PO DAILY 06/23/21 08/19/24 History cetirizine 5 mg tablet 5 mg PO DAILY 11/15/23 08/19/24 History multivitamin 1 tablet PO DAILY 11/15/23 08/19/24 History paroxetine HCl 20 mg tablet 20 mg PO DAILY #90 tabs 04/28/24 08/19/24 Rx pravastatin 40 mg tablet 40 mg PO DAILY #90 tabs 08/24/24 Rx Patient hx anesthesia problems: none Family hx anesthesia problems: none Results Review: All pre-operative results and documents have been reviewed as part of the pre-operative evaluation. 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 Ritchie History of bone marrow donation History of hernia repair H/O sinus surgery 11/2021 Family History Family History Sibling Family history of malignant neoplasm Father Family history of heart disease in male family member before age 55 Carcinoma of colon Diabetes mellitus Depression Mother Lung cancer Social History Social History Social History: caffeine 1 cup coffee daily Smoking packs per day: 1.5 Smoking cigarettes per day: 30.0 Years smoked: 30 Smoking pack-years: 45.00 Smoking status: Former smoker Second hand tobacco smoke exposure: No Additional smoking assessment comments: PT STATES STOPPED VAPING 11/2020 DENIES ALL FORMS OF TOBACCO USE Alcohol intake: current Drinks per week: 4 Substance use: never Substance use type: does not use Do You Feel Safe in your Home?: Yes Lack of Transportation: No Lack of Food: Never True Current Housing: I Have Housing Concerned About Future Housing: No Difficulty Paying Gas/Electric Bills: No Difficulty Paying for Meds: No Currently Unemployed: No Education: Associate Degree Difficulty w/ Childcare or Family Care: No Living arrangements: with family Occupation/Education: occupation 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 Informed Consent: The patient's anesthetic plan and its attendant risks and benefits were discussed with the patient/family/POA. Questions were solicited and answers provided to the satisfaction of the patient/family/POA.
[2024-09-09 07:35] VITALS: BP 120/83; PULSE 88; RESP 16; TEMP 36.7; O2SAT 96
[2024-09-09] MEDS: LACTATED RINGERS 1,000 ML 150 ML IV CONT (07:51)
[2024-09-09] MEDS: AMPICILLIN 2 GM/NS 100 ML 2 GM/100 ML BAG IVPB (07:51)
--- NOTE | 2024-09-09 08:33 | P.HP_ITS ---
History of Present Illness History of Present Illness Consent: Risks, benefits, and alternatives have been discussed and questions answered. Patient agrees to proceed with procedure. Chief complaint: Family history of colon cancer Narrative: Kristofer Montoya is a 58 year old male presents for colonoscopy. Patient has current weight appetite bowel movements are normal. Denies abdominal pain. He has had no bleeding. Family history is significant that his father had colon cancer. 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 Ritchie History of bone marrow donation History of hernia repair H/O sinus surgery 11/2021 Family History Family History Sibling Family history of malignant neoplasm Father Family history of heart disease in male family member before age 55 Carcinoma of colon Diabetes mellitus Depression Mother Lung cancer Social History Social History Social History: caffeine 1 cup coffee daily Smoking packs per day: 1.5 Smoking cigarettes per day: 30.0 Years smoked: 30 Smoking pack-years: 45.00 Smoking status: Former smoker Second hand tobacco smoke exposure: No Additional smoking assessment comments: PT STATES STOPPED VAPING 11/2020 DENIES ALL FORMS OF TOBACCO USE Alcohol intake: current Drinks per week: 4 Substance use: never Substance use type: does not use Do You Feel Safe in your Home?: Yes Lack of Transportation: No Lack of Food: Never True Current Housing: I Have Housing Concerned About Future Housing: No Difficulty Paying Gas/Electric Bills: No Difficulty Paying for Meds: No Currently Unemployed: No Education: Associate Degree Difficulty w/ Childcare or Family Care: No Living arrangements: with family Occupation/Education: occupation 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 Spiritual care concerns: No Meds Home Medications and Allergies Home Medications ?Medication ?Instructions ?Recorded ?Confirmed ?Type aspirin 81 mg tablet 81 mg PO DAILY 06/23/21 08/19/24 History cetirizine 5 mg tablet 5 mg PO DAILY 11/15/23 08/19/24 History multivitamin 1 tablet PO DAILY 11/15/23 08/19/24 History paroxetine HCl 20 mg tablet 20 mg PO DAILY #90 tabs 04/28/24 08/19/24 Rx pravastatin 40 mg tablet 40 mg PO DAILY #90 tabs 08/24/24 Rx Allergies Allergy/AdvReac Type Severity Reaction Status Date / Time Nehwruv-SZG-SuS Reductase AdvReac Intermediate Diarrhea Verified 09/09/24 07:37 Inhibitor (Lizabyr-Dji-Twt Reductase Inhibitor) Vital Signs Vital Signs - 24 hr 09/09/24 07:35 Temperature 98.1 F Pulse Rate 88 Respiratory Rate 16 Blood Pressure 120/83 Pulse Oximetry 96 Oxygen Delivery Room Air Exam Narrative: Physical exam reveals patient to be vital signs stable. HEENT exam is unremarkable. Patient is anicteric. Lungs are clear to auscultation and to percussion. Heart is without murmur or extra sounds. Abdomen sounds are present soft nontender with no organomegaly. Digital external rectal exam normal. Assessment and Plan Assessment and plan (1) Family history of colon cancer in father: Code(s): Z80.0 - Family history of malignant neoplasm of digestive organs Status: Acute Assessment and Plan: The patient's father has colon Cancer. Screening colonoscopy advised at this time and consider this at 5 year intervals.
[2024-09-09] MEDS: SIMETHICONE ORAL SUSPENSION 20 MG/0.3 ML 30 ML BOTTLE 0.6 ML IRRIGATION (09:22)
[2024-09-09 09:39] VITALS: BP 104/78; PULSE 88; RESP 15; O2SAT 96
[2024-09-09 09:49] VITALS: BP 103/74; PULSE 82; RESP 15; O2SAT 97
[2024-09-09 09:59] VITALS: BP 117/87; PULSE 89; RESP 14; O2SAT 97
--- NOTE | 2024-09-09 11:28 | WPDANESPN ---
Anes - Prog Note Post-Op Date/Time: 09/09/24 11:28 Cardiovascular status: normal Respiratory status: normal Airway patency: baseline Mental status: baseline Post-Op hydration status: normal Vital Signs: Last Vital Signs Temp 36.7 C 09/09/24 07:35 Pulse 89 09/09/24 09:59 Resp 14 09/09/24 09:59 BP 117/87 09/09/24 09:59 Pulse Ox 97 09/09/24 09:59 O2 Del Method Room Air 09/09/24 09:59 Pain Score (VAS): 0 I/O: Intake & Output 09/08/24 09/09/24 09/09/24 23:59 07:59 15:59 Intake Total 900 Balance 900 Post-procedural complaints: none Patient Feedback: Patient satisfied with anesthetic care. Other Findings: Patient vital signs back to baseline. Patient denies nausea and vomiting. Patient's pain under control. Patient OK for discharge.
== END 2024-09-09 10:10 | disposition home or self-care (01) ==
PROVIDERS: PCP Family Medicine; Visit Provider Internal Medicine Gastroenterology
PROC: 0DJD8ZZ Inspection of Lower Intestinal Tract, Via Natural or Artificial Opening Endoscopic (ICD-10-PCS; CPT 45378; principal; 2024-09-09 09:00)
DX: Z80.0 Family history of malignant neoplasm of digestive organs (principal); D12.4 Benign neoplasm of descending colon; D12.5 Benign neoplasm of sigmoid colon
CPT/HCPCS: 45385

== ENCOUNTER 2024-09-09 07:20 | Outpatient (NON) | payer OTHER, SELFPAY | END 2024-09-09 07:21 | disposition home or self-care (01) | LOC: ANHLAB 09-10 07:22 | PROVIDERS: PCP Family Medicine; Visit Provider Internal Medicine Gastroenterology | DX: K63.5 Polyp of colon (principal); Z80.0 Family history of malignant neoplasm of digestive organs | CPT/HCPCS: 88305 ==

== ENCOUNTER 2024-12-07 14:20 | Outpatient (CLI) | payer OTHER, SELFPAY ==
--- NOTE | ~2024-12-07 | XR_ITS ---
XR hip LT 2V w AP pelvis 12/07/2024 15:01 Indication: Left hip pain Procedure: AP pelvis and 2 views left hip Comparison: Comparison to multiple prior studies sequentially, with oldest reviewed study dated 06/23. Findings: There is a left total hip arthroplasty which is well seated. No fracture or traumatic malal ignment. 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 Pelvic rings are intact. Impression: 1: No acute bone or joint abnormality. Reviewed, dictated and finalized at location B. Impression: 1: No acute bone or joint abnormality.
== END 2024-12-07 14:21 | disposition home or self-care (01) ==
LOC: GOSHIMG 14:21
PROVIDERS: PCP Orthopaedic Surgery; Visit Provider Orthopaedic Surgery
DX: Z96.642 Presence of left artificial hip joint (principal)
CPT/HCPCS: 73502

== ENCOUNTER 2024-12-11 11:30 | Emergency (ER) | payer OTHER, SELFPAY ==
[2024-12-11 11:41] VITALS: BP 123/81; PULSE 89; RESP 16; TEMP 36.6; O2SAT 98
--- NOTE | 2024-12-11 11:49 | ECG_ITS ---
Test Date: 2024-12-11 11:53:28 Measurements Intervals [place] Rate: 80 P: 9 WI: 155 QRS: 34 QRSD: 96 T: 62 QT: 351 QTc: 405 Interpretive Statements SINUS RHYTHM No previous ECG available for comparison Electronically Signed On 12-11-2024 18:36:07 CDT by Marycarmen Cadet M.D.
--- NOTE | 2024-12-11 11:52 | ED.DIZZY ---
HPI - Dizziness General Chief Complaint: Dizziness Stated Complaint: Dizziness Time Seen by Provider: 12/11/24 11:41 Source: patient and RN notes reviewed Mode of arrival: ambulatory Limitations: no limitations History of Present Illness HPI Narrative: Patient presents today complaining dizziness and lightheadedness x5 days. Patient believes these symptoms are due his paroxetine. He has been tapering off this medication for a while now and is now only on 5 mg. He denies any additional symptoms to include nausea or vomiting, numbness or tingling, vision changes, weakness, recent illness, chest pain or shortness of breath. He also states he did not have these dizziness or lightheaded symptoms on the higher dose of the paroxetine. Dizziness worsens with head movement from side to side. States he called his PCPs office and she wanted him to come to [facility] for further evaluation. Related Data Home Medications ?Medication ?Instructions ?Recorded ?Confirmed ?Last Taken ?Type aspirin 81 mg tablet 81 mg PO DAILY 06/23/21 12/09/24 09/07/24 History cetirizine 5 mg tablet 5 mg PO DAILY 11/15/23 12/09/24 09/07/24 History multivitamin 1 tablet PO DAILY 11/15/23 12/09/24 09/05/24 History Allergies Allergy/AdvReac Type Severity Reaction Status Date / Time Bknhrfw-HWV-XnZ Reductase AdvReac Intermediate Diarrhea Verified 12/11/24 11:41 Inhibitor (Oxbmkjf-Wtb-Bqd Reductase Inhibitor) Review of Systems Review of Systems: CONSTITUTIONAL: Denies body aches, fever, chills, or sweats. EYES: Denies visual changes, redness, or discharge. ENT: Denies rhinorrhea, congestion, sore throat, or otalgia. CARDIOVASCULAR: Denies chest pain, palpitations, or edema. RESPIRATORY: Denies cough or dyspnea. GASTROINTESTINAL: Denies abdominal pain, nausea, vomiting, or diarrhea. GENITOURINARY: Denies dysuria or hematuria. SKIN: Denies rash, itching, or wounds. MUSCULOSKELETAL: Denies back pain, joint pain, or myalgia. NEUROLOGIC: Denies headache, numbness, tingling, or weakness.+ dizziness PSYCH: Denies depression or anxiety. 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 Ritchie History of bone marrow donation History of hernia repair H/O sinus surgery 11/2021 Family History Family History Sibling Family history of malignant neoplasm Father Family history of heart disease in male family member before age 55 Carcinoma of colon Diabetes mellitus Depression Mother Lung cancer Social History Social History Social History: caffeine 1 cup coffee daily Smoking packs per day: 1.5 Smoking cigarettes per day: 30.0 Years smoked: 30 Smoking pack-years: 45.00 Smoking status: Former smoker Second hand tobacco smoke exposure: No Additional smoking assessment comments: PT STATES STOPPED VAPING 11/2020 DENIES ALL FORMS OF TOBACCO USE Alcohol intake: current Drinks per week: 4 Substance use: never Substance use type: does not use Do You Feel Safe in your Home?: Yes Lack of Transportation: No Lack of Food: Never True Current Housing: I Have Housing Concerned About Future Housing: No Difficulty Paying Gas/Electric Bills: No Difficulty Paying for Meds: No Currently Unemployed: No Education: Associate Degree Difficulty w/ Childcare or Family Care: No Living arrangements: with family Occupation/Education: occupation 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 Please see nursing chart for further information. There is no relevant family history pertinent to the presenting complaint Exam Narrative: GENERAL: Well-appearing, well-nourished, and in no acute distress. HEAD: Normocephalic, atraumatic. EYES: EOMI. PERRL. No nystagmus. No redness or drainage. Conjunctivae normal. ENT: Mucous membranes pink and moist. NECK: Normal AROM. Supple. No lymphadenopathy. CHEST: No respiratory distress. Clear to auscultation. HEART: Regular rate and rhythm. No murmur appreciated. Normal peripheral pulses. EXTREMITIES: Normal range of motion. No edema. SKIN: Warm, dry, no rash. Capillary refill normal. Normal skin turgor. NEURO: No focal deficits. Alert and oriented x3. Gait steady. Hand supervisor computer operations equal and strong. 5/5 strength in BLE. PSYCH: Normal affect. No signs of depression or anxiety. Course Course Level of Care: Express Care Visit Vital Signs Vital signs: Vital Signs Temperature 97.9 F 12/11/24 11:41 Pulse Rate 89 12/11/24 11:41 Respiratory Rate 16 12/11/24 11:41 Blood Pressure 123/81 12/11/24 11:41 Pulse Oximetry 98 12/11/24 11:41 Temperature 97.9 F 12/11/24 11:41 Pulse Rate 89 12/11/24 11:41 Respiratory Rate 16 12/11/24 11:41 Blood Pressure 123/81 12/11/24 11:41 Pulse Oximetry 98 12/11/24 11:41 Reviewed MDM - Dizziness MDM Narrative Medical decision making narrative: EKG shows sinus rhythm. Patient's exam is grossly normal without any neurological deficits. Review of paroxetine information in Up-to-Date shows possible dizziness side effect with weaning. Patient has taken Meclizine in the past for dizziness episodes and would like to try again. Was not aware it was OTC. Strict ED precautions given. Differential Diagnosis Differential diagnosis: Likely adverse reaction to drug, benign paroxysmal positional vertigo and other (Vertigo, medication reaction) ECG Data EKG #1: Attestation: I personally reviewed and interpreted this ECG as follows: ECG completion date: 12/11/24 ECG completion time: 11:53 Prior ECG tracings: not available for review (unable to view) Interpretation: Sinus rhythm. Heart rate 80. IN interval 155. Critical Care Time Critical Care Time Critical Care Time: No Discharge Plan Discharge Clinical Impression: Dizziness Patient Disposition: Home, Self-Care Condition: Stable Instructions: Dizziness (ED) Additional Instructions: You can try some Meclizine (Bonine) for your dizziness. Follow-up with your nurse practitioner next week if symptoms persist. As discussed, if you develop any additional or worsening symptoms such as chest pain, shortness of breath, vision changes, headache, nausea or vomiting, numbness or tingling, weakness, please go to the ER immediately for further evaluation and treatment. Your blood pressure was elevated above 120/80 today at Urgent Care. This puts you above the threshold for follow up. Please schedule a followup visit with your personal physician as soon as possible, for further evaluation and treatment. Even blood pressure exceeding 120/80 may indicate pre-hypertension. Patient Language: Hebrew Prescriptions: No Action paroxetine HCl 10 mg tablet 10 mg PO DAILY Qty: 42 0RF aspirin 81 mg Tablet 81 mg PO DAILY multivitamin Tablet 1 tablet PO DAILY cetirizine 5 mg Tablet 5 mg PO DAILY pravastatin 40 mg tablet 40 mg PO DAILY Qty: 90 1RF paroxetine HCl 20 mg tablet 20 mg PO DAILY Qty: 90 1RF Follow-up/Referrals: PHYSICIAN,CLOTH FRAMER [Primary Care Provider] - Time of Disposition: 12:17
== END 2024-12-11 12:32 | disposition home or self-care (01) ==
PROVIDERS: Emergency Provider Nurse Practitioner
DX: R42 Dizziness and giddiness (principal); Z87.891 Personal history of nicotine dependence; E78.5 Hyperlipidemia, unspecified; Z79.82 Long term (current) use of aspirin
CPT/HCPCS: 93005; 99213; G0463

== ENCOUNTER 2025-09-03 16:28 | Emergency (ER) | payer OTHER, SELFPAY ==
[2025-09-03 16:32] VITALS: BP 105/82; PULSE 96; RESP 18; TEMP 36.4; O2SAT 98
--- NOTE | 2025-09-03 16:33 | ED.URI ---
HPI - URI/Sore Throat General Chief Complaint: Upper Respiratory Infection Stated Complaint: Flu Like Source: patient Mode of arrival: ambulatory Limitations: no limitations Related Data Home Medications ?Medication ?Instructions ?Recorded ?Confirmed ?Last Taken ?Type aspirin 81 mg tablet 81 mg PO DAILY 06/23/21 06/10/25 09/07/24 History cetirizine 5 mg tablet 5 mg PO DAILY 11/15/23 06/10/25 09/07/24 History multivitamin 1 tablet PO DAILY 11/15/23 06/10/25 09/05/24 History Allergies Allergy/AdvReac Type Severity Reaction Status Date / Time Ipnbrdh-SBK-MyG Reductase AdvReac Intermediate Diarrhea Verified 09/03/25 16:30 Inhibitor (Nyzardp-Hek-Bpo Reductase Inhibitor) Review of Systems Review of Systems: All systems reviewed & are unremarkable except as noted in HPI and below Constitutional: Constitutional: Denies chills, Denies fatigue, Denies fever(s), Denies headache(s), Denies malaise and Denies weakness Eyes: Eyes: Denies blurry vision, Denies itchy eyes and Denies loss of vision ENT: Denies otalgia, Denies headache(s), Reports nasal congestion, Denies sinus pain and Denies sore throat Cardiovascular: Cardiovascular: Denies chest pain, Denies irregular heart rhythm and Denies dyspnea Respiratory: Respiratory: Reports cough and Denies dyspnea Gastrointestinal: Gastrointestinal: Denies abdominal pain, Denies diarrhea, Denies nausea and Denies vomiting Musculoskeletal: Musculoskeletal: Denies back pain, Denies myalgias and Denies arthralgias Integumentary/Breasts: Skin/Breast: Denies pruritus and Denies rash Neurologic: Denies headache(s), Denies loss of vision and Denies weakness Psychiatric: Psychiatric: Reports no additional psychiatric complaints Endocrine: Endocrine: Denies fatigue Allergic/Immunologic: Allergic/Immunologic: Denies itchy eyes PMFSH Past Medical History Medical History Hyperlipidemia Anxiety 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 Ritchie History of bone marrow donation History of hernia repair H/O sinus surgery 11/2021 Family History Family History Sibling Family history of malignant neoplasm Father Family history of heart disease in male family member before age 55 Carcinoma of colon Diabetes mellitus Depression Mother Lung cancer Social History Social History Social History: caffeine 1 cup coffee daily Smoking packs per day: 1.5 Smoking cigarettes per day: 30.0 Years smoked: 30 Smoking pack-years: 45.00 Smoking status: Former smoker Second hand tobacco smoke exposure: No Additional smoking assessment comments: PT STATES STOPPED VAPING 11/2020 DENIES ALL FORMS OF TOBACCO USE Alcohol intake: current Drinks per week: 4 Substance use: never Substance use type: does not use Lack of Transportation: No Lack of Food: Never True Current Housing: I Have Housing Concerned About Future Housing: No Difficulty Paying Gas/Electric Bills: No Difficulty Paying for Meds: No Currently Unemployed: No Education: Associate Degree Difficulty w/ Childcare or Family Care: No Living arrangements: with family Occupation/Education: occupation 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 There is no relevant family history pertinent to the presenting complaint. Exam Const: General: cooperative, healthy appearing, comfortable, no acute distress and well nourished Nutritional Appearance: well nourished Orientation/consciousness: patient oriented x3 Limitations: no limitations HENMT: Head: normal to inspection, normocephalic and atraumatic Ears: hearing grossly normal bilaterally, external ears normal, TM's normal bilaterally, EAC's normal and no periauricular adenopathy Face/Nose/Sinus: Normal external nose present, Abnormal mucous membranes and turbinates present erythematous bilateral and diffuse, normal facial exam, sinuses nontender and face symmetric Face and sinus: normal facial exam, sinuses nontender and face symmetric Mouth: Yes Normal oral and palatal mucosa present, Yes lip normal, Yes tongue normal, Yes Normal salivary glands and ducts present, Yes oropharynx normal and Yes moist mucous membranes Teeth and gingiva: dentition normal Throat: posterior oropharynx normal, tonsils normal and uvula midline Eyes: General: appearance normal, both eyes and all related structures Alignment and Position: alignment normal and position normal Periorbital: periorbital findings normal Eyelids: eyelids normal Pupils: Equal, round and reactive pupils present Neck: Neck: normal visual inspection, full ROM, no lymphadenopathy and supple Chest: Chest palpation & inspection: normal inspection of the chest and normal palpation of entire chest wall Resp: Effort & Inspection: normal respiratory effort and able to speak in complete sentences Auscultation: clear to auscultation bilaterally, no crackles, no rales, no rhonchi and no wheezes Cardio: Rate: regular rate Rhythm: regular rhythm Heart sounds: S1 normal heart sound present and S2 normal heart sound present GI: Inspection: normal to inspection Skin: General skin exam: normal color and no rashes or lesions noted Neuro: General: patient oriented x3 and moves all extremities Cranial nerves: Yes Equal, round and reactive pupils present Speech: normal speech Gait exam (Neuro): Normal gait present Extrem: General: normal to inspection, full ROM and no edema Psych: Appearance: grossly normal and well kempt Mental Status: mental status grossly normal Speech and movement: Normal speech and movement present Affect: normal affect Attitude: cooperative Thought process: Normal thought process present Course Course Emergency Course: Patient is aware of diagnosis, understands and agrees to treatment plan. Anticipatory guidance given. Patient agrees to follow-up as directed and is aware of reasons to seek care at the emergency department. Portions of this record may have been created with voice recognition software Level of Care: Express Care Visit MDM MDM Narrative Medical decision making narrative: Rapid COVID, flu, strep were negative. A throat culture is pending. Symptoms likely viral in etiology. Pt well hydrated appearing, in no respiratory distress, hemodynamically stable. Recommend supportive care. The patient is stable at time of discharge the clinical impression was discussed and the patient was given the opportunity to ask questions, which were addressed as completely as possible given the information available at present. Anticipatory guidance and return to care precautions were discussed and the importance of primary care follow-up was stressed and encouraged. The patient voiced understanding of the plan, indications to return, and the need for follow-up. Exam findings show no acute concerns or changes Patient is appropriate for outpatient treatment and follow-up. Differential Diagnosis Differential Diagnosis: Differential diagnosis considered: [place] virus, strep pharyngitis, allergic rhinitis, upper respiratory tract infection, sinusitis, rhinosinusitis, nasopharyngitis. viral pharyngitis, otitis media, otitis externa, otitis effusion, foreign body, cerumen impaction, viral syndrome, and influenza. Medical Records I have reviewed the following patient records and this information was taken into consideration when formulating the assessment and plan.: previous clinic visits Discharge Plan Discharge Patient Language: Ethiopian Prescriptions: No Action aspirin 81 mg Tablet 81 mg PO DAILY multivitamin Tablet 1 tablet PO DAILY cetirizine 5 mg Tablet 5 mg PO DAILY pravastatin 40 mg tablet 40 mg PO DAILY Qty: 90 1RF Follow-up/Referrals: Judy Fish APRN [Primary Care Provider, Internal Medicine]
--- NOTE | 2025-09-03 17:57 | ED_ITS ---
HPI - Nausea/Vomiting/Diarrhea General Chief complaint: Nausea/Vomiting/Diarrhea Stated complaint: Flu Like Time Seen by Provider: 09/03/25 16:30 Source: patient Mode of arrival: ambulatory Limitations: no limitations History of Present Illness HPI Narrative: patient is a 59-year-old male who presents with nausea vomiting, diarrhea and abdominal pain. Symptoms 1st started last week and were persistent for 5 days. Resolved for 3 days and then returned today. Patient did have normal bowel movement in the 3 days. Reports abdominal pain is not as severe as it was last week but is still present. Reports vomit and diarrhea appear the same consistency of dark brown coffee-ground like substance. denies any fever, chills. Patient does take ibuprofen regularly for back pain. Related Data Home Medications ?Medication ?Instructions ?Recorded ?Confirmed ?Last Taken ?Type aspirin 81 mg tablet 81 mg PO DAILY 06/23/2105/2409/07/24 History cetirizine 5 mg tablet 5 mg PO DAILY 11/15/2306/1009/07/24 History multivitamin 1 tablet PO DAILY 11/15/23 0 06/10/25 09/05/24 History Allergies Allergy/AdvReac Type Severity Reaction Status Date / Time Lqlwoaa-JTJ-VvL Reductase AdvReac Intermediate Diarrhea Verified 09/03/25 18:01 Inhibitor (Ajjkcje-Wye-Ydv Reductase Inhibitor) Review of Systems Review of Systems: All systems reviewed & are unremarkable except as noted in HPI and below Constitutional: Constitutional: Denies body ache(s), Denies chills, Denies fatigue, Denies fever(s), Denies headache(s), Denies malaise and Denies weakness Eyes: Eyes: Denies blurry vision, Denies irritation and Denies loss of vision ENT: Denies otalgia, Denies headache(s), Denies nasal discharge, Denies sinus pain and Denies sore throat Cardiovascular: Cardiovascular: Denies chest pain, Denies irregular heart rhythm and Denies dyspnea Respiratory: Respiratory: Denies dyspnea Gastrointestinal: Gastrointestinal: Reports abdominal pain, Denies melena, Denies hematochezia, Reports diarrhea, Reports nausea and Reports vomiting Musculoskeletal: Musculoskeletal: Denies back pain, Denies myalgias and Denies arthralgias Integumentary/Breasts: Skin/Breast: Denies pruritus and Denies rash Neurologic: Denies headache(s), Denies loss of vision and Denies weakness Psychiatric: Psychiatric: Reports no additional psychiatric complaints Endocrine: Endocrine: Denies fatigue PMFSH Past Medical History Medical History Hyperlipidemia Anxiety 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 Ritchie History of bone marrow donation History of hernia repair H/O sinus surgery 11/2021 Family History Family History Sibling Family history of malignant neoplasm Father Family history of heart disease in male family member before age 55 Carcinoma of colon Diabetes mellitus Depression Mother Lung cancer Social History Social History Social History: caffeine 1 cup coffee daily Smoking packs per day: 1.5 Smoking cigarettes per day: 30.0 Years smoked: 30 Smoking pack-years: 45.00 Smoking status: Former smoker Second hand tobacco smoke exposure: No Additional smoking assessment comments: PT STATES STOPPED VAPING 11/2020 DENIES ALL FORMS OF TOBACCO USE Alcohol intake: current Drinks per week: 4 Substance use: never Substance use type: does not use Lack of Transportation: No Lack of Food: Never True Current Housing: I Have Housing Concerned About Future Housing: No Difficulty Paying Gas/Electric Bills: No Difficulty Paying for Meds: No Currently Unemployed: No Education: Associate Degree Difficulty w/ Childcare or Family Care: No Living arrangements: with family Occupation/Education: occupation 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 There is no relevant family history pertinent to the presenting complaint. Exam Const: General: cooperative, healthy appearing, comfortable, no acute distress and well nourished Nutritional Appearance: well nourished Orientation/consciousness: patient oriented x3 Limitations: no limitations HENMT: Head: normal to inspection, normocephalic and atraumatic Ears: hearing grossly normal bilaterally and external ears normal Face/Nose/Sinus: Normal external nose present, normal facial exam and face symmetric Face and sinus: normal facial exam and face symmetric Mouth: Yes lip normal Eyes: General: appearance normal, both eyes and all related structures Alignment and Position: alignment normal and position normal Periorbital: periorbital findings normal Eyelids: eyelids normal Pupils: Equal, round and reactive pupils present EOM: EOMs intact bilaterally Neck: Neck: normal visual inspection, full ROM and supple Chest: Chest palpation & inspection: normal inspection of the chest Resp: Effort & Inspection: normal respiratory effort and able to speak in complete sentences Auscultation: clear to auscultation bilaterally Cardio: Rate: regular rate Rhythm: regular rhythm Heart sounds: S1 normal heart sound present and S2 normal heart sound present GI: Inspection: normal to inspection GI Palp: No abdominal tenderness, Yes Soft to palpation, No Tenderness to palpation present (GI) and No Guarding due to palpation present (GI) Skin: General skin exam: normal color and no rashes or lesions noted Neuro: General: patient oriented x3 and moves all extremities Cranial nerves: Yes Equal, round and reactive pupils present Speech: normal speech Gait exam (Neuro): Normal gait present Extrem: General: normal to inspection, full ROM and no edema Psych: Appearance: grossly normal and well kempt Mental Status: mental status grossly normal Speech and movement: Normal speech and movement present Affect: normal affect Attitude: cooperative Thought process: Normal thought process present Course Course Emergency Course: patient being transferred to [facility] for further workup and evaluation. Patient may need labs and imaging to rule out bleeding gastric ulcers Portions of this record may have been created with voice recognition software Level of Care: Express Care Visit Vital Signs Vital signs: Vital Signs Temperature 36.4 C 09/03/25 16:32 Pulse Rate 96 09/03/25 16:32 Respiratory Rate 18 09/03/25 16:32 Blood Pressure 105/82 09/03/25 16:32 Pulse Oximetry 98 09/03/25 16:32 Oxygen Delivery Room Air 09/03/25 16:32 Temperature 36.4 C 09/03/25 16:32 Pulse Rate 96 09/03/25 16:32 Respiratory Rate 18 09/03/25 16:32 Blood Pressure 105/82 09/03/25 16:32 Pulse Oximetry 98 09/03/25 16:32 Oxygen Delivery Room Air 09/03/25 16:32 Transfer Transfered to: [facility] Transportation: Other ( private auto) Transfer rationale: nausea, vomiting, diarrhea, abdominal pain Accepting physician: Joi NOLASCO MDM Narrative Medical decision making narrative: patient being transferred [facility] for further evaluation in treatment. Patient may need labs and imaging to rule out bleeding gastric ulcers Differential Diagnosis Differential Diagnosis: Differential diagnostic considerations for acute abdominal pain?include surgical abdominal etiology, ischemic bowel, inflammatory bowel disease, gastritis, PUD, gastroenteritis, cardiac etiology, appendicitis, diverticulitis, bowel obstruction, kidney stone, pyelonephritis, abdominal aortic aneurysm, pancreatitis, constipation. Medical Records I have reviewed the following patient records and this information was taken into consideration when formulating the assessment and plan.: previous clinic visits Discharge Plan Discharge Clinical Impression: Abdominal pain, Nausea, vomiting and diarrhea Patient Disposition: Acute Care Hospital Condition: Stable Patient Language: Danish Prescriptions: No Action aspirin 81 mg Tablet 81 mg PO DAILY multivitamin Tablet 1 tablet PO DAILY cetirizine 5 mg Tablet 5 mg PO DAILY pravastatin 40 mg tablet 40 mg PO DAILY Qty: 90 1RF Follow-up/Referrals: Judy Fish APRN [Primary Care Provider, Internal Medicine] Time of Disposition: 17:30
== END 2025-09-03 17:30 | disposition short-term general hospital (02) ==
LOC: EXPGOSH 16:30
PROVIDERS: Emergency Provider Nurse Practitioner Family; PCP Nurse Practitioner Family
DX: R11.2 Nausea with vomiting, unspecified (principal); R19.7 Diarrhea, unspecified; R10.9 Unspecified abdominal pain; Z87.891 Personal history of nicotine dependence; E78.5 Hyperlipidemia, unspecified; Z96.642 Presence of left artificial hip joint; Z79.82 Long term (current) use of aspirin
CPT/HCPCS: 99212; G0463

== ENCOUNTER 2025-09-03 17:53 | Emergency (ER) | payer OTHER, SELFPAY ==
--- NOTE | ~2025-09-03 | CT_ITS ---
EXAMINATION: CT abdomen pelvis w con DATE: 09/03/2025 19:57 INDICATION: 59-year-old male with epigastric pain. Possible obstruction. TECHNIQUE: Computed tomography (CT) of the abdomen and pelvis was performed with 100 mL intravenous contrast. Automated exposure control and iterative reconstruction technique were employed. The dose-length product was 545.96 mGy-cm. COMPARISON: [facility] dated 12/13/2022. FINDINGS: Lung bases do not show acute findings. No focal lesions of liver and spleen. The gallbladder shows no calcified stones or edema. Common bile duct measures 5 mm. Pancreas shows no acute findings. No calculi or obstructive changes of kidneys. No evidence of small bowel obstruction. Normal size appendix in the retrocecal position. Diverticula of sigmoid colon. No diverticulitis. Small left inguinal hernia containing omental fat. Severe degenerative disc disease and minimal anterolisthesis at L5-S1 level. IMPRESSION: 1. No acute findings in the upper abdomen and pelvis. 2. The other findings are described above. Reviewed, dictated and finalized at location T. ET [employer]ACH[employer]PERATOR
[2025-09-03 18:01] VITALS: BP 121/78; PULSE 86; RESP 20; TEMP 36.5; O2SAT 98
[2025-09-03 19:04] VITALS: BP 113/83; PULSE 79; RESP 18; TEMP 36.4; O2SAT 94
--- NOTE | 2025-09-03 19:21 | ED_ITS ---
HPI - GI Bleed General Chief complaint: GI Bleed Stated complaint: stomach issues Time Seen by Provider: 09/03/25 19:08 Source: patient Mode of arrival: ambulatory Limitations: no limitations History of Present Illness HPI Narrative: This is a 59-year-old male with history of hyperlipidemia who presents the ED for nausea vomiting. Patient states that week ago, he had nausea and vomiting daily for about 5 days ago with some epigastric abdominal pain. This improved for the past 3 days but he began having again today so he went to urgent care where he was advised to come here for further evaluation. Patient notes that the vomitus has been more stool appearing. He has no prior abdominal surgeries. His last normal bowel movement was this morning but he has had an episode of diarrhea since then that is nonbloody. Related Data Home Medications ?Medication ?Instructions ?Recorded ?Confirmed ?Last Taken ?Type aspirin 81 mg tablet 81 mg PO DAILY 06/23/2105/2409/07/24 History cetirizine 5 mg tablet 5 mg PO DAILY 11/15/2306/1009/07/24 History multivitamin 1 tablet PO DAILY 11/15/23 0 06/10/25 09/05/24 History Allergies Allergy/AdvReac Type Severity Reaction Status Date / Time Laigorg-DON-OaF Reductase AdvReac Intermediate Diarrhea Verified 09/03/25 18:01 Inhibitor (Jeynndo-Dhk-Lbx Reductase Inhibitor) Review of Systems 2 Review of Systems: Gen.: Denies fevers or chills Eyes: Denies eye pain or visual change ENT: Denies congestion Respiratory: Denies shortness of breath or cough CV: Denies chest pain or palpitations GI: As per HPI denies burning, urgency, frequency or hematuria Musculoskeletal: Denies back pain or muscle pain Neuro: Denies numbness, tingling, weakness or focal weakness Skin: Denies rash Except as documented, all other systems reviewed and negative [facility] Past Medical History Medical History Hyperlipidemia Anxiety 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 Ritchie History of bone marrow donation History of hernia repair H/O sinus surgery 11/2021 Family History Family History Sibling Family history of malignant neoplasm Father Family history of heart disease in male family member before age 55 Carcinoma of colon Diabetes mellitus Depression Mother Lung cancer Social History Social History Social History: caffeine 1 cup coffee daily Smoking packs per day: 1.5 Smoking cigarettes per day: 30.0 Years smoked: 30 Smoking pack-years: 45.00 Smoking status: Former smoker Second hand tobacco smoke exposure: No Additional smoking assessment comments: PT STATES STOPPED VAPING 11/2020 DENIES ALL FORMS OF TOBACCO USE Alcohol intake: current Drinks per week: 4 Substance use: never Substance use type: does not use Lack of Transportation: No Lack of Food: Never True Current Housing: I Have Housing Concerned About Future Housing: No Difficulty Paying Gas/Electric Bills: No Difficulty Paying for Meds: No Currently Unemployed: No Education: Associate Degree Difficulty w/ Childcare or Family Care: No Living arrangements: with family Occupation/Education: occupation 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 CARDIOVASCULAR: Regular rate and rhythm without murmurs rubs or gallops. ABDOMINAL: Soft, nontender, nondistended, no rebound or guarding MUSCULOSKELETAl: Moves all extremities. No clubbing, cyanosis or edema. NEURO: Awake and alert. Following commands, speech normal, no focal deficits SKIN:: Warm, dry. No rashes lesions or abrasions PSYCHIATRIC: Normal affect/mood, Course Vital Signs Vital signs: Vital Signs Temperature 97.7 F 09/03/25 18:01 Pulse Rate 86 09/03/25 18:01 Respiratory Rate 20 09/03/25 18:01 Blood Pressure 121/78 09/03/25 18:01 Pulse Oximetry 98 09/03/25 18:01 Oxygen Delivery Room Air 09/03/25 18:01 Temperature 97.6 F 09/03/25 19:04 Pulse Rate 72 09/03/25 20:15 Respiratory Rate 14 09/03/25 20:15 Blood Pressure 119/77 09/03/25 20:15 Pulse Oximetry 95 09/03/25 20:15 Oxygen Delivery Room Air 09/03/25 18:01 [facility] Narrative Medical decision making narrative: 59-year-old male Presenting for nausea and vomiting and epigastric abdominal pain. On initial evaluation patient was in no acute distress afebrile, hemodynamic stable. Differentials include but are not limited to: ACS, Cholecystitis, choledocolithiasis, GERD, PUD, Pancreatitis, SBO, Cancer, AAA Notable exam findings: Abdomen soft and nontender. Heart and lungs clear. I personally reviewed the patient's lab result. Notable lab findings: CBC CMP without significant abnormalities. CT showed no acute process. Patient was given 1 L NS bolus. He remained asymptomatic throughout his ED course. Unclear the source of his symptoms at this time but there is no obstruction which was the major concern and reason for transfer from urgent care. Patient was deemed appropriate for discharge at this time. He was given a prescription for Zofran. He was advised follow-up with PCP in the next week for re-evaluation. Patient was agreeable to the plan. Given strict return precautions. Differential Diagnosis Differential Diagnosis: ACS, Cholecystitis, choledocolithiasis, GERD, PUD, Pancreatitis, SBO, Cancer, AAA Lab Data [facility] Lab Attestation statement: I personally reviewed the patient's lab results. 09/03/25 18:58 09/03/25 18:58 Labs: Lab Results 09/03/25 Range/Units 18:58 WBC 9.7 (4.5-10.0) K/mm3 RBC 4.90 (4.6-6.20) M/mm3 Hgb 16.3 D (14.0-18.0) g/dL Hct 46.9 (42.0-52.0) % MCV 95.7 (80-100) fl MCH 33.3 (26-34) pg MCHC 34.8 (32-36) g/dl RDW 13.2 (11.5-14.5) % Plt Count 312 (150-375) k/mm3 MPV 9.9 (7.4-10.4) fl Immature Gran % (Auto) 0.2 (0-0.5) % Neut % (Auto) 72.5 (45.5-73.1) % Lymph % (Auto) 14.2 L (18.3-44.2) % [place] % (Auto) 9.2 H (2.6-8.5) % Eos % (Auto) 3.3 (0-4.4) % Baso % (Auto) 0.6 (0.2-1.2) % Lymph # (Auto) 1.37 (0.9-3.2) K/mm3 [place] # (Auto) 0.9 H (0.1-0.6) K/mm3 Eos # (Auto) 0.3 (0-0.3) K/mm3 Baso # (Auto) 0.1 (0.0-0.1) K/mm3 Abs Immat Gran (auto) 0.02 (0.00-0.031) K/mm3 Absolute Neuts (auto) 7.0 H (1.3-6.7) K/mm3 Absolute Nucleated RBC 0.000 (0.0-0.012) K/mm3 Nucleated RBC % 0.0 (0.0-0.2) % Sodium 136 L (137-145) mmol/L Potassium 3.9 (3.4-5.0) mmol/L Chloride 102 (98-107) mmol/L Carbon Dioxide 27 (22-30) mmol/L Anion Gap 7 (4-12) mmol/L BUN 15 (9-20) mg/dL Creatinine 0.92 (0.7-1.3) mg/dL Estim Creat Clear Calc 85 ml/min Estimated GFR > 60 (59 - ) Glucose 94 (65-110) mg/dL Calcium 9.5 (8.4-10.2) mg/dL Magnesium 2.0 (1.6-2.3) mg/dL Total Bilirubin 0.8 (0.2-1.3) mg/dL AST 55 (17-59) U/L ALT 54 H (6-50) U/L Alkaline Phosphatase 73 (38-126) U/L Total Protein 7.7 (6.3-8.2) g/dL Albumin 4.6 (3.5-5.1) g/dL Lipase 113 (23-300) U/L Imaging Data Attestation: I personally reviewed and interpreted this imaging study as follows: Radiologist's impression: ITS Impressions Abdomen/Pelvis CT 09/03/25 19:58 IMPRESSION: 1. No acute findings in the upper abdomen and pelvis. 2. The other findings are described above. Discharge Plan Discharge Clinical Impression: Nausea & vomiting Patient Disposition: Home Condition: Stable Instructions: Antibiotic Form, Acute Nausea and Vomiting (ED) Additional Instructions: CT scan was reassuring. Your given prescription for Zofran, take this as prescribed. Follow-up with your PCP in the next week for re-evaluation. Return to the ED for any new or worsening symptoms. Patient Language: Setswana Prescriptions: New ondansetron 4 mg tablet,disintegrating 4 mg PO Q8H PRN (Reason: nausea and vomiting) Qty: 12 0RF No Action aspirin 81 mg Tablet 81 mg PO DAILY multivitamin Tablet 1 tablet PO DAILY cetirizine 5 mg Tablet 5 mg PO DAILY pravastatin 40 mg tablet 40 mg PO DAILY Qty: 90 1RF Follow-up/Referrals: Judy Fish APRN [Primary Care Provider, Internal Medicine]
[2025-09-03 19:28] LABS: Hematocrit 46.9 % (42.0-52.0); Hemoglobin 16.3 g/dL (14.0-18.0); Immature Granulocyte Percent A 0.2 % (0-0.5); Lymphocytes Absolute Auto 1.37 K/mm3 (0.9-3.2); Mean Corpuscular HGB Conc 34.8 g/dl (32-36); Mean Corpuscular Hemoglobin 33.3 pg (26-34); Mean Corpuscular Volume 95.7 fl (80-100); Nucleated Red Blood Cells Absolute Auto 0.000 K/mm3 (0.0-0.012); Nucleated Red Blood Cells Perc 0.0 % (0.0-0.2); Platelet Count Result 312 k/mm3 (150-375); Red Blood Count 4.90 M/mm3 (4.6-6.20); White Blood Count 9.7 K/mm3 (4.5-10.0)
[2025-09-03 19:35] LABS: Alanine Aminotransferase 54 U/L (6-50); Albumin Level 4.6 g/dL (3.5-5.1); Alkaline Phosphatase 73 U/L (38-126); Anion Gap 7 mmol/L (4-12); Aspartate Amino Transferase 55 U/L (17-59); Bilirubin,Total 0.8 mg/dL (0.2-1.3); Blood Urea Nitrogen 15 mg/dL (9-20); Calcium 9.5 mg/dL (8.4-10.2); Carbon Dioxide 27 mmol/L (22-30); Chloride 102 mmol/L (98-107); Estimated CRCL calculation 85 ml/min; Estimated Glomerular Filt Rate > 60; Glucose 94 mg/dL (65-110); Lipase 113 U/L (23-300); Magnesium 2.0 mg/dL (1.6-2.3); Potassium 3.9 mmol/L (3.4-5.0); Sodium 136 mmol/L (137-145); Total Protein 7.7 g/dL (6.3-8.2)
[2025-09-03 20:15] VITALS: BP 119/77; PULSE 72; RESP 14; O2SAT 95
[2025-09-03] MEDS: SODIUM CHLORIDE 0.9% IV 1,000 ML 999 ML IV CONT (20:18)
== END 2025-09-03 20:40 | disposition home or self-care (01) ==
PROVIDERS: Emergency Provider Student in an Organized Health Care Education/Training Program; PCP Nurse Practitioner Family
DX: R11.2 Nausea with vomiting, unspecified (principal); E78.5 Hyperlipidemia, unspecified; Z96.642 Presence of left artificial hip joint; Z87.891 Personal history of nicotine dependence; Z79.82 Long term (current) use of aspirin; Z79.899 Other long term (current) drug therapy
CPT/HCPCS: 36415; 74177; 80053; 83690; 83735; 85025; 96360; 99284; J7030; Q9967